=== PATIENT | male | born 1995 | race Caucasian/White ===

== ENCOUNTER 2019-12-07 11:39 | Emergency (ER) | payer MEDICAID, SELFPAY ==
--- NOTE | 2019-12-07 11:56 | ED.GENADULT ---
HPI - General Adult General Chief complaint: Skin/Abscess/Foreign Body Stated complaint: CYST Time Seen by Provider: 12/07/19 11:56 Source: patient Mode of arrival: ambulatory Limitations: no limitations History of Present Illness HPI narrative: Left thigh and right thigh bumps x several days. No fevers/chills. Onset (ago): day(s) Location: lower extremity (right and left ) Radiation: non-radiation Severity: mild Quality: burning Pain Consistency: constant Associated symptoms: denies other symptoms Related Data Previous Rx's Medication Instructions Recorded cephalexin 500 mg PO Q8H #21 cap 12/07/19 sulfamethoxazole-trimethoprim 1 tab PO BID #14 tab 12/07/19 [Bactrim DS] Allergies Allergy/AdvReac Type Severity Reaction Status Date / Time No Known Allergies Allergy Verified 12/07/19 12:07 [No Known Allergies*] Review of Systems Review of Systems: Yes all other systems are reviewed and are negative Constitutional: Constitutional: Reports no additional constitutional complaints, Denies body ache(s), Denies chills, Denies fever(s), Denies headache(s) and Denies weakness Eyes: Eyes: Reports no additional eye complaints and Denies change in vision ENT: Reports system reviewed and no additional complaints, except as documented, Denies dizziness, Denies headache(s), Denies nasal congestion, Denies nasal discharge and Denies neck pain Cardiovascular: Cardiovascular: Reports no additional cardiovascular complaints, Denies chest pain, Denies leg edema and Denies dyspnea Respiratory: Respiratory: Reports no additional respiratory complaints, Denies cough and Denies dyspnea Gastrointestinal: Gastrointestinal: Reports no additional gastrointestinal complaints, Denies abdominal pain, Denies diarrhea, Denies nausea and Denies vomiting Genitourinary: Genitourinary: Denies urinary incontinence Musculoskeletal: Musculoskeletal: Reports no additional musculoskeletal complaints, Denies back pain, Denies arthralgias, Denies joint swelling, Denies neck pain, Denies numbness and Denies tingling Integumentary/Breasts: Skin/Breast: Reports system reviewed and no additional complaints, except as docu, Reports lesions and Denies rash Neurologic: Reports system reviewed and no additional complaints, except as documented, Denies Abnormal speech present, Denies dizziness, Denies headache(s), Denies numbness, Denies tingling and Denies weakness [facility] Past Medical History Attestation statement: The following information was validated with the patient. Source: obtained from family and nursing notes reviewed Medical History (Updated 12/07/19 @ 12:14 by Ximena Arnett NP) No known health problems Social History Social History Alcohol intake: unknown Smoking Status: Unknown if ever smoked Use of substances other than those prescribed or required for medical reasons: Unknown Advance Directives: No Advance Directives Information Provided: Yes Physical Exam Vital Signs and I&O and Narrative: Vital Signs and I&O: Vital Signs Temp 97.6 F 12/07/19 12:03 Pulse 65 12/07/19 12:03 Resp 16 12/07/19 12:03 BP 120/61 12/07/19 12:03 Pulse Ox 96 12/07/19 12:03 Intake & Output 12/06/19 12/07/19 12/07/19 18:59 06:59 18:59 Weight 210 kg Body Mass Index 66.4 Const: General: cooperative, healthy appearing, comfortable and no acute distress Orientation/consciousness: patient oriented x3 Limitations: no limitations HENMT: Head: Yes normal to inspection Ears: hearing grossly normal bilaterally General nose exam: Normal external nose present Face and sinus: Yes normal facial exam Mouth: Normal oral and palatal mucosa present Throat: Yes posterior oropharynx normal Eyes: General: appearance normal, both eyes and all related structures Pupils: Equal, round and reactive pupils present Neck: Neck: Yes normal visual inspection Chest: Chest palpation & inspection: normal inspection of the chest Resp: Effort & Inspection: normal respiratory effort Auscultation: clear to auscultation bilaterally Cardio: Rate: regular rate Rhythm: regular rhythm Peripheral pulses: Peripheral pulses 2+ throughout GI: Inspection: Yes normal to inspection Palpation (GI): Soft to palpation and nontender Auscultation: normal bowel sounds Back/Spine/Pelvis: Thoracic/Lumbar Spine: thoracic and lumbar spine normal to inspection Skin: Other: Over the left lateral thigh there is a medium abscess with surrounding cellulitis. There is a central puncture wound. There is no fluctuance. There is some mild induration. Over the right lateral thigh there is a small abscess with some mild erythema and no pointing or fluctuance or induration. General skin exam: no rashes or lesions noted Neuro: General: patient oriented x3, no focal motor deficits and normal sensation to monofilament Cranial nerves: Yes Equal, round and reactive pupils present Cognition (Neuro): normal cognition Speech: No Abnormal speech present Gait exam (Neuro): Normal gait present Motor exam (neuro): 5/5 motor strength present throughout Extrem: General: Yes normal to inspection Medical Decision Making MDM Narrative Medical decision making narrative: Two abscesses noted. Unable to I and D at this time. No fevers or chills or systemic signs of infection. Will start on oral antibiotics. Reviewed worrisome signs and symptoms and when to return to the emergency department. Comfortable discharge home. Discharge Plan Discharge Clinical Impression: Cellulitis Patient Disposition: Home, Self-Care Instructions: Cellulitis (ED), Abscess (ED) Additional Instructions: heat to the area return for increasing redness, fever >100.4 Prescriptions: New cephalexin 500 mg capsule 500 mg PO Q8H Qty: 21 RF: 0 sulfamethoxazole-trimethoprim [Bactrim DS] 800-160 mg tablet 1 tab PO BID Qty: 14 RF: 0 Referrals: Physician,Unknown [Primary Care Provider] - 2 days Interventions: ED Discharge Assessment Last Done: 12/07/19 12:35 Discharge Date/Time: 12/07/19 12:37
[2019-12-07 12:03] VITALS: BP 120/61; PULSE 65; RESP 16; TEMP 36.4; O2SAT 96; BMI 66.4
== END 2019-12-07 12:37 | disposition home or self-care (01) ==
PROVIDERS: Emergency Provider Internal Medicine
DX: L03.116 Cellulitis of left lower limb (principal); L03.115 Cellulitis of right lower limb
CPT/HCPCS: 99283

== ENCOUNTER 2019-12-18 09:38 | Outpatient (REF) | payer MEDICAID, SELFPAY | END 2019-12-18 09:39 | disposition home or self-care (01) | LOC: HO.LAB 09:38 | PROVIDERS: PCP Registered Nurse; Visit Provider Internal Medicine | DX: Z20.828 Contact with and (suspected) exposure to other viral communicable diseases (principal) | CPT/HCPCS: 87635 ==

== ENCOUNTER 2020-02-07 10:09 | Outpatient (REF) | payer MEDICAID, SELFPAY | END 2020-02-07 10:10 | disposition home or self-care (01) | LOC: HO.LAB 10:09 | PROVIDERS: PCP Registered Nurse; Visit Provider Internal Medicine | DX: Z20.828 Contact with and (suspected) exposure to other viral communicable diseases (principal) | CPT/HCPCS: C9803; U0003 ==

== ENCOUNTER 2020-03-15 12:56 | Outpatient (REF) | payer MEDICAID, SELFPAY | END 2020-03-15 12:57 | disposition home or self-care (01) | LOC: HO.LAB 12:56 | PROVIDERS: Visit Provider Internal Medicine | DX: Z20.822 Contact with and (suspected) exposure to COVID-19 (principal) | CPT/HCPCS: 36415; C9803; U0003 ==

== ENCOUNTER 2020-03-22 12:28 | Outpatient (REF) | payer MEDICAID, SELFPAY | END 2020-03-22 12:29 | disposition home or self-care (01) | LOC: HO.LAB 12:28 | PROVIDERS: Visit Provider Internal Medicine | DX: Z20.822 Contact with and (suspected) exposure to COVID-19 (principal) | CPT/HCPCS: 36415; C9803; U0003 ==

== ENCOUNTER 2020-05-31 21:14 | Emergency (ER) | payer MEDICAID, SELFPAY ==
--- NOTE | ~2020-05-31 | CT_ITS ---
EXAMINATION: CT ABDOMEN AND PELVIS WITH CONTRAST CLINICAL INFORMATION: Right testicular pain. COMPARISON: 05/31/2020. TECHNIQUE: Contiguous axial thin section helical images of the abdomen and pelvis were performed following the administration of 85 mL of intravenous Omnipaque 350. The data set was reformatted in the coronal and sagittal planes and reviewed on an independent workstation. DLP: 769 mGy-cm. FINDINGS: The visualized lung bases are clear. The visualized portions of the heart are unremarkable. The liver is of normal size and attenuation without focal lesions nor intrahepatic biliary ductal dilation. A normal gallbladder is identified. There is no wall thickening or discernible pericholecystic fluid. The spleen, pancreas, adrenal glands are unremarkable. Both kidneys are of normal size and attenuation without hydronephrosis or nephrolithiasis. Following the administration of IV contrast, prompt symmetric nephrograms are displayed. There is no abdominal free fluid. There is neither mesenteric nor retroperitoneal lymphadenopathy. Normal unopacified loops of small and large bowel are identified. A normal appendix is identified. There is no pelvic free fluid. The urinary bladder is unremarkable. There is neither pelvic nor inguinal lymphadenopathy. There is no demonstrable hernia. Bone windows: Neither sclerotic nor lytic bone lesions are identified. CT/CT abdomen pelvis w con IMPRESSION: No acute abdominal or pelvic inflammatory or infectious processes. No demonstrable inguinal hernia. Automated exposure control (Care Dose) Adjustment of the mA and/or kv according to patient size (this includes techniques or standardized protocols for targeted exams where dose is matched to indication / reason for exam; i.e. extremities or head).
--- NOTE | ~2020-05-31 | US_ITS ---
EXAMINATION: US SCROTUM CLINICAL INFORMATION: Question of testicular torsion. COMPARISON: Scrotal ultrasound 10/12/2019 TECHNIQUE: A sonogram of the scrotum was performed assessing mendoza-scale appearance and color Doppler flow. Spectral Doppler analysis of the arterial and venous flow were performed in the testes bilaterally. FINDINGS: RIGHT: Right testicle measures 4.3 x 2.2 x 3.1 cm, volume 14 point mL. No worrisome focal testicular parenchymal lesions are visualized. Testicular microlithiasis is present. Spectral Doppler analysis of the arterial and venous flow is normal in the right testis. Right epididymal head is normal in size. No right hydrocele or varicocele is seen. Right epididymal Doppler flow is normal. LEFT: Left testicle measures 4.0 x 2.4 x 2.9 cm, volume 14.5 mL. No worrisome focal testicular parenchymal lesions are visualized. Testicular microlithiasis is present. Spectral Doppler analysis of the arterial and venous flow is normal in the left testis. Left epididymal head is normal in size. 2 tiny epididymal cysts are present measuring 2 to 3 mm in size. No left hydrocele or varicocele is seen. Left epididymal Doppler flow is normal. US/US scrotum doppler IMPRESSION: 1. No evidence of testicular torsion with symmetric vascularity of both testes. 2. Tiny benign cysts in the head of the left epididymis 3. Mild testicular microlithiasis is present without intratesticular mass or other worrisome findings. In the absence of any other risk factors for testicular cancer (e.g., personal history of testicular cancer, a father or brother with testicular cancer, history of cryptorchidism or maldescent, testicular atrophy, or other risk factors), no further imaging or biochemical follow-up is necessary; Appearances were identical on the 10/12/2019 study. All that is recommended is routine monthly testicular self-examination. However, if the patient has risk factors for testicular cancer, referral to a urologist for evaluation and determination of an optimal follow-up strategy is recommended.
[2020-05-31 21:16] VITALS: BP 135/67; PULSE 72; RESP 16; TEMP 36.9; O2SAT 97; BMI 30.1
--- NOTE | 2020-05-31 23:06 | PC.NURSE ---
PT US DONE AT BEDSIDE.
[2020-05-31 23:19] LABS: Glucose Urine UA NEG (NEG); Leukocyte Esterase Urine NEG (NEG); Nitrite Urine NEG (NEG); PH 7.5 (5.0-8.0); Urine Blood NEG (NEG); Urine Ketones NEG (NEG); Urine Protein NEG (NEG-TRACE)
[2020-05-31 23:22] LABS: Appearance Urine CLEAR; Color Urine YELLOW; UACC Culture Trigger NO
--- NOTE | 2020-06-01 00:01 | ED_ITS ---
HPI - General Adult General Chief complaint: General Medical Stated complaint: Groin pain Time Seen by Provider: 05/31/20 22:08 Source: patient Mode of arrival: ambulatory History of Present Illness HPI narrative: 24-year-old male with no significant past medical history presenting to the ED complaining of groin/testicular pain radiating to lower abdomen since 12 noon today while at work. 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 Denies known injury/trauma or falls. Denies nausea/vomiting, dysuria/hematuria, diarrhea/constipation. Denies being sexually active. Denies penile lesions/discharge Onset (ago): hour(s) Related Data Previous Rx's Medication Instructions Recorded cephalexin 500 mg PO Q8H #21 cap 12/07/19 sulfamethoxazole-trimethoprim 1 tab PO BID #14 tab 12/07/19 [Bactrim DS] Allergies Allergy/AdvReac Type Severity Reaction Status Date / Time No Known Allergies Allergy Verified 12/07/19 12:07 [No Known Allergies*] Review of Systems Review of Systems: Constitutional: No Fever, No Chills Cardiovascular: No Chest Pain, No SOB Respiratory: No Cough, No Dyspnea Gastrointestinal: No Nausea, No Vomiting, No Diarrhea, No Constipation, + Abdominal pain Genitourinary: No irregular bleeding, No Dysuria, No Hematuria, No Flank Pain, No Urinary Flow Changes, + testicular pain Musculoskeletal: No joint pain, No Myalgias, No Joint Swelling Skin: No Skin Lesions, No rash Yes all other systems are reviewed and are negative PMFSH Past Medical History Attestation statement: The following information was validated with the patient. Medical History (Updated 06/01/20 @ 02:06 by ELA Yen) No known health problems Social History Social History Alcohol intake: unknown Smoking Status: Unknown if ever smoked Smoked in Last 30 Days: No Use of substances other than those prescribed or required for medical reasons: No Any prior treatment program specific to substance use: No Advance Directives: No Advance Directives Information Provided: Yes Physical Exam Vital Signs: Vital Signs: Last Vital Signs Temp 98.5 F 06/01/20 00:44 Pulse 75 06/01/20 00:44 Resp 20 06/01/20 00:44 BP 138/88 06/01/20 00:44 Pulse Ox 100 06/01/20 00:44 Body Mass Index 30.1 Const: Other: in pain General: cooperative, healthy appearing, comfortable and well developed Orientation/consciousness: patient oriented x3 Limitations: no limitations HENMT: Head: Yes normal to inspection Ears: hearing grossly normal bilaterally General nose exam: Normal external nose present Face and sinus: Yes normal facial exam Eyes: General: appearance normal, both eyes and all related structures EOM: EOMs intact bilaterally Neck: Neck: Yes normal visual inspection and Yes no meningeal signs Resp: Effort & Inspection: normal respiratory effort Cardio: Rate: regular rate GI: Inspection: Yes normal to inspection Palpation (GI): Soft to palpation, nontender, no guarding and not rigid : Penis: normal penis and circumcised Scrotum: no inguinal hernias Testes: epididymal tenderness on the right, no testicular mass, no testicular swelling and testicular tenderness on the right Skin: Rashes: no rashes Wounds: no wounds Neuro: General: patient oriented x3 and no meningeal signs Gait exam (Neuro): Normal gait present Extrem: General: Yes normal to inspection Course Course Course Narrative: -UA and GC/chlamydia negative US scrotum IMPRESSION: 1. No evidence of testicular torsion with symmetric vascularity of both testes. 2. Tiny benign cysts in the head of the left epididymis 3. Mild testicular microlithiasis is present without intratesticular mass or other worrisome findings. In the absence of any other risk factors for testicular cancer (e.g., personal history of testicular cancer, a father or brother with testicular cancer, history of cryptorchidism or maldescent, testicular atrophy, or other risk factors), no further imaging or biochemical follow-up is necessary; Appearances were identical on the 10/12/2019 study. All that is recommended is routine monthly testicular self-examination. However, if the patient has risk factors for testicular cancer, referral to a urologist for evaluation and determination of an optimal follow-up strategy is recommended >> due to patient's profound tenderness will obtain labs and CT to rule out dilan ia. Patient denies risk factors for testicular cancer, discussed follow-up with Urology --0200-- ED care transferred to Dr. Hoffmann pending remaining labs and CT. Dispo per results Medical Decision Making MDM Narrative Medical decision making narrative: 24-year-old male with no significant past med ical history presenting to the ED complaining of groin/testicular pain radiating to lower abdomen since 12 noon today while at work. On exam VSS, NAD, appears in pain, abdomen soft/nontender, right testicle very tender to palpation > epididymal, no appreciable hernia, no appreciable hernia or discharge. Concern for testicular torsion/epididymitis/orchitis vs inguinal hernia vs MSK pain. Lower concern for appendicitis/diverticulitis without abdominal tenderness on exam. Unlikely renal stone/pyelo Plan: UA, STI testing, testicular ultrasound Lab Data Result diagrams: 06/01/20 00:59 06/01/20 00:59 Labs: Lab Results 05/31/20 05/31/20 06/01/20 Range/Units 23:10 23:10 00:59 WBC (4.8-10.8) X10*3/uL RBC (4.60-5.80) X10*6/uL Hgb (14.0-18.0) g/dl Hct (42-52) % MCV (80-98) fL MCH (27.0-33.0) pg MCHC (31.0-36.0) g/dl RDW (11.0-16.0) % Plt Count (160-400) X10*3/uL MPV (9.4-12.4) fL Immature Gran % (Auto) (0.0-0.4) % Neut % (Auto) (45-73) % Lymph % (Auto) (20-40) % [place] % (Auto) (2-11) % Eos % (Auto) (0-4) % Baso % (Auto) (0-2) % Lymph # (Auto) (1.2-4.9) X10*3/uL [place] # (Auto) (0.1-1.2) X10*3/uL Eos # (Auto) (0.0-0.4) X10*3/uL Baso # (Auto) (0.0-0.2) X10*3/uL Abs Immat Gran (auto) (0.00-0.03) X10*3/uL Absolute Neuts (auto) (2.0-8.3) X10*3/uL Absolute Nucleated RBC (0.0-0.012) X10*3/uL Nucleated RBC % (auto) (0.0-0.2) /100WBC Lactic Acid 0.9 (0.5-2.0) mmol/L Urine Color YELLOW Urine Appearance CLEAR Urine pH 7.5 (5.0-8.0) Ur Specific [place] 1.020 (1.005-1.025) Urine Protein NEG (NEG-TRACE) MG/DL Urine Glucose (UA) NEG (NEG) MG/DL Urine Ketones NEG (NEG) MG/DL Urine Blood NEG (NEG) Urine Nitrite NEG (NEG) Ur Leukocyte Esterase NEG (NEG) Chlam trachomat DNA PCR NOT DETECTED (Not Detect.) N.gonorrhoeae DNA (PCR) NOT DETECTED (Not Detect.) 06/01/20 Range/Units 00:59 WBC 8.1 (4.8-10.8) X10*3/uL RBC 4.48 L (4.60-5.80) X10*6/uL Hgb 14.2 (14.0-18.0) g/dl Hct 43.0 (42-52) % MCV 96.0 (80-98) fL MCH 31.7 (27.0-33.0) pg MCHC 33.0 (31.0-36.0) g/dl RDW 13.1 (11.0-16.0) % Plt Count 174 (160-400) X10*3/uL MPV 12.0 (9.4-12.4) fL Immature Gran % (Auto) 0.1 (0.0-0.4) % Neut % (Auto) 41.4 L (45-73) % Lymph % (Auto) 46.3 H (20-40) % [place] % (Auto) 7.7 (2-11) % Eos % (Auto) 3.8 (0-4) % Baso % (Auto) 0.7 (0-2) % Lymph # (Auto) 3.7 (1.2-4.9) X10*3/uL [place] # (Auto) 0.6 (0.1-1.2) X10*3/uL Eos # (Auto) 0.3 (0.0-0.4) X10*3/uL Baso # (Auto) 0.1 (0.0-0.2) X10*3/uL Abs Immat Gran (auto) 0.01 (0.00-0.03) X10*3/uL Absolute Neuts (auto) 3.3 (2.0-8.3) X10*3/uL Absolute Nucleated RBC 0.000 (0.0-0.012) X10*3/uL Nucleated RBC % (auto) 0.0 (0.0-0.2) /100WBC Lactic Acid (0.5-2.0) mmol/L Urine Color Urine Appearance Urine pH (5.0-8.0) Ur Specific [place] (1.005-1.025) Urine Protein (NEG-TRACE) MG/DL Urine Glucose (UA) (NEG) MG/DL Urine Ketones (NEG) MG/DL Urine Blood (NEG) Urine Nitrite (NEG) Ur Leukocyte Esterase (NEG) Chlam trachomat DNA PCR (Not Detect.) N.gonorrhoeae DNA (PCR) (Not Detect.) Discharge Plan Discharge Clinical Impression: Right testicular pain Instructions: Scrotal Pain (ED) Additional Instructions: Your urine, gonorrhea, and chlamydia were negative the ultrasoun did not Show anything of eminent concern however did show mild testicular microlithiasis which should be followed up outpatient with Urology If your symptoms persist or worsen, become unbearable, you developed fever or chills return to the ED follow up with your doctor Prescriptions: No Action cephalexin 500 mg capsule 500 mg PO Q8H Qty: 21 RF: 0 sulfamethoxazole-trimethoprim [Bactrim DS] 800-160 mg tablet 1 tab PO BID Qty: 14 RF: 0 Referrals: Antony Bynum MD [Physician] - 1 week Stand Alone Forms: Work/School Release
[2020-06-01 00:44] VITALS: BP 138/88; PULSE 75; RESP 20; TEMP 36.9; O2SAT 100
[2020-06-01 01:06] LABS: Hemoglobin 14.2 g/dl (14.0-18.0); Imm Gran Abs Auto 0.01 X10*3/uL (0.00-0.03); Imm Gran Pct Auto 0.1 % (0.0-0.4); PLT CLUMP 1; SCAN SMEAR FLAG 1
[2020-06-01 01:07] LABS: Basophils Absolute Auto 0.1 X10*3/uL (0.0-0.2); Basophils Percent Auto 0.7 % (0-2); Eosinophils Absolute Auto 0.3 X10*3/uL (0.0-0.4); Eosinophils Percent Auto 3.8 % (0-4); Lymphocytes Absolute Auto 3.7 X10*3/uL (1.2-4.9); Lymphocytes Percent Auto 46.3 % (20-40); Mean Corpuscular Hemoglobin 31.7 pg (27.0-33.0); Monocytes Absolute Auto 0.6 X10*3/uL (0.1-1.2); Monocytes Percent Auto 7.7 % (2-11); Neutrophils Absolute Auto 3.3 X10*3/uL (2.0-8.3); Neutrophils Percent Auto 41.4 % (45-73); Red Blood Count 4.48 X10*6/uL (4.60-5.80); Red Cell Distribution Width 13.1 % (11.0-16.0)
[2020-06-01 01:08] LABS: MANUAL DIFF FLAG NO
--- NOTE | 2020-06-01 01:11 | PC.NURSE ---
[facility] CLOSING REPORT GIVEN TO SEYMOUR MIDDLETON WHO WILL TAKE OVER PT CARE. PT AWAITING CT SCAN.
[2020-06-01 01:20] LABS: CT PCR NOT DETECTED (Not Detect.)
[2020-06-01 01:21] LABS: NG PCR NOT DETECTED (Not Detect.)
[2020-06-01 01:23] LABS: Lactic Acid 0.9 mmol/L (0.5-2.0)
[2020-06-01 01:29] LABS: Platelet Count 174 X10*3/uL (160-400); White Blood Count 8.1 X10*3/uL (4.8-10.8)
[2020-06-01 02:14] LABS: Alanine Aminotransferase 21 U/L (0-40); Albumin Level 4.4 g/dL (3.5-5.0); Alkaline Phosphatase 75 U/L (39-117); Anion Gap 11 (12-20); Aspartate Amino Transferase 22 U/L (5-37); Bilirubin Direct < 0.2 mg/dL (0.0-0.5); Bilirubin Total < 0.2 mg/dL (0.0-1.0); Blood Urea Nitrogen 19 mg/dL (9-16); Calcium 9.5 mg/dL (8.4-10.2); Carbon Dioxide 28 mmol/L (22-29); Chloride 104 mmol/L (96-108); Creatinine Clr Calc Pharmacy 123.1; Estimated Glomerular Filt Rate > 60; Glucose Random 102 mg/dL (60-115); Potassium 4.1 mmol/L (3.3-5.1); Sodium 139 mmol/L (135-145); Total Protein 7.4 g/dL (6.5-8.0)
== END 2020-06-01 04:17 | disposition home or self-care (01) ==
PROVIDERS: Physician Assistant; Emergency Provider Emergency Medicine; PCP Registered Nurse
DX: N50.811 Right testicular pain (principal)
CPT/HCPCS: 36415; 74177; 76870; 80048; 80076; 81003; 83605; 85025; 87491; 87591; 93975; 99284; Q9967

== ENCOUNTER 2020-12-13 16:25 | Outpatient (REF) | payer MEDICAID, SELFPAY ==
--- NOTE | ~2020-12-13 | XR_ITS ---
EXAMINATION: XR WRIST, RIGHT CLINICAL INFORMATION: Atraumatic right wrist pain. COMPARISON: None TECHNIQUE: PA, lateral, and oblique views of the right wrist. FINDINGS: The bones and soft tissues are normal. No fracture. Alignment is anatomic with normal joint spaces. No erosions or abnormal soft tissue calcifications. XR/XR wrist RT min 3V IMPRESSION: Unremarkable right wrist.
== END 2020-12-13 16:26 | disposition home or self-care (01) ==
LOC: HO.XRAY 16:25
PROVIDERS: Absent Provider Nurse Practitioner Family; PCP Nurse Practitioner Family; Visit Provider Emergency Medicine
DX: M25.531 Pain in right wrist (principal)
CPT/HCPCS: 73110

== ENCOUNTER 2021-02-06 08:20 | Outpatient (REF) | payer MEDICAID, SELFPAY ==
--- NOTE | 2021-02-06 08:24 | EMG_ITS ---
Right median and ulnar motor and sensory studies were performed. Right radial sensory study was performed. Right median and lateral antecubital sensory studies were performed and paraspinal muscles were tested. IMPRESSION: Unremarkable study with no evidence of any nerve entrapment. MD MARS Barker/PORTER / [id number]
== END 2021-02-06 08:21 | disposition home or self-care (01) ==
LOC: HO.NEURO 08:20
PROVIDERS: PCP Nurse Practitioner Family; Visit Provider Emergency Medicine
DX: M25.531 Pain in right wrist (principal)
CPT/HCPCS: 95886; 95910

== ENCOUNTER → 2021-03-05 13:53 | Outpatient (BNVA) | payer MEDICAID, SELFPAY | PROVIDERS: Visit Provider Orthopaedic Surgery | DX: M25.531 Pain in right wrist (principal) | CPT/HCPCS: 99202 ==

== ENCOUNTER 2021-03-17 10:52 | Outpatient (REF) | payer MEDICAID, SELFPAY ==
[2021-03-17 11:52] LABS: IDNOW Serial# 16C4AD1C
[2021-03-17 11:53] LABS: COVID-19 Test Positive (Negative)
== END 2021-03-17 10:53 | disposition home or self-care (01) ==
LOC: HO.LAB 10:52
PROVIDERS: Visit Provider Internal Medicine
DX: Z20.822 Contact with and (suspected) exposure to COVID-19 (principal)
CPT/HCPCS: 87635; C9803

== ENCOUNTER → 2021-06-18 14:57 | Outpatient (BNVA) | payer MEDICAID, SELFPAY | PROVIDERS: Visit Provider Nurse Practitioner Family | DX: R10.13 Epigastric pain (principal); K21.9 Gastro-esophageal reflux disease without esophagitis; K59.03 Drug induced constipation | CPT/HCPCS: 99202 ==

== ENCOUNTER 2021-07-29 14:51 | Outpatient (REF) | payer MEDICAID, SELFPAY ==
[2021-07-29 16:42] LABS: Alanine Aminotransferase 22 U/L (0-40); Albumin Level 4.7 g/dL (3.5-5.0); Alkaline Phosphatase 69 U/L (39-117); Anion Gap 13 (12-20); Aspartate Amino Transferase 21 U/L (5-37); Bilirubin Total 0.6 mg/dL (0.0-1.0); Blood Urea Nitrogen 17 mg/dL (9-16); Carbon Dioxide 23 mmol/L (22-29); Chloride 107 mmol/L (96-108); Estimated Glomerular Filt Rate > 60; Glucose Random 93 mg/dL (60-115); Lipase 11 U/L (8-78); Potassium 4.3 mmol/L (3.3-5.1); Sodium 139 mmol/L (135-145); Total Protein 8.2 g/dL (6.5-8.0)
[2021-07-29 17:02] LABS: TSH reflex Free T4 1.72 uIU/mL (0.32-4.0)
[2021-07-29 17:11] LABS: Folate 19.5 ng/mL (> or = 4.0); Vitamin B12 1612 pg/mL (200-900)
[2021-08-02 12:47] LABS: Vitamin D 25-OH, D2 <4 ng/mL; Vitamin D 25-OH, D3 29 ng/mL; Vitamin D 25-OH, Total 29 ng/mL (30-100)
== END 2021-07-29 14:52 | disposition home or self-care (01) ==
LOC: HO.LAB 14:51
PROVIDERS: PCP Nurse Practitioner Family; Referring Provider Nurse Practitioner Family; Visit Provider Nurse Practitioner Family
DX: R10.13 Epigastric pain (principal); K59.01 Slow transit constipation; K62.89 Other specified diseases of anus and rectum; R19.7 Diarrhea, unspecified; E55.9 Vitamin D deficiency, unspecified
CPT/HCPCS: 36415; 80053; 82306; 82607; 82746; 83690; 84443; 99212

== ENCOUNTER 2021-09-02 11:23 | Outpatient (REF) | payer MEDICAID, SELFPAY ==
[2021-09-02 12:13] LABS: COVID-19 Test Negative (Negative); IDNOW Serial# 9DB6401D
== END 2021-09-02 11:24 | disposition home or self-care (01) ==
LOC: HO.LAB 11:23
PROVIDERS: Visit Provider Internal Medicine
DX: Z20.822 Contact with and (suspected) exposure to COVID-19 (principal)
CPT/HCPCS: 87635; C9803

== ENCOUNTER 2021-10-06 09:58 | Outpatient (REF) | payer MEDICAID, SELFPAY ==
[2021-10-06 10:29] LABS: COVID-19 Test Negative (Negative); IDNOW Serial# 16C4AD1C
== END 2021-10-06 09:59 | disposition home or self-care (01) ==
LOC: HO.LAB 09:58
PROVIDERS: Visit Provider Internal Medicine
DX: Z20.822 Contact with and (suspected) exposure to COVID-19 (principal)
CPT/HCPCS: 87635; C9803

== ENCOUNTER 2021-10-10 08:16 | Day surgery (SDC) | payer MEDICAID, SELFPAY ==
--- NOTE | 2021-10-09 09:15 | HO.ANESPROP2 ---
Documented by User: Marley Penny NP 10/09/21 09:15 HPI - Anesthesia Eval Consult details Narrative: 25yo M for Upper Endoscopy PMFSH Active Problems Active Problems: All Active Problems (Updated 03/05/21 @ 14:47 by Marcia Reddy MD) Right wrist pain (Acute) Past Medical History Medical History Gastro-esophageal reflux No known health problems Family History Family History Mother Diabetes HTN (hypertension) Maternal Grandmother Diabetes HTN (hypertension) Social History Social History Alcohol intake: unknown Patient Tobacco Use Status: Never used Tobacco Use of substances other than those prescribed or required for medical reasons: No Are you DNR?: No Advance Directives: No Advance Directives Information Provided: Yes Current occupational status: employed Current occupation: rt [employer] Allergies Allergy/AdvReac Type Severity Reaction Status Date / Time dog dander Allergy Mild Unknown Verified 07/29/21 14:56 Home Medications Medication Instructions Recorded Confirmed Last Taken Type bupropion HCl 150 mg 24 hr tablet, 150 mg PO QAM 06/18/21 10/03/21 Unknown History extended release Exam Exam Date and Time: October 09, [id number] Pertinent Lab Results Pertinent Lab Results: Laboratory Tests 06/01/20 07/29/21 00:59 15:58 WBC 8.1 Hgb 14.2 Hct 43.0 Plt Count 174 Sodium 139 Potassium 4.3 Chloride 107 Carbon Dioxide 23 BUN 17 H Creatinine 1.04 Assessment and Plan Assessment Anesthesia Assessment: Chart Reviewed Documented by User: Germaine Stewart MD 10/10/21 09:16 PMFSH Active Problems Active Problems: All Active Problems (Updated 03/05/21 @ 14:47 by Marcia Reddy MD) Right wrist pain (Acute) Sarmiento Parkinson White syndrome. Has been having some chest pain ? 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 Past Medical History Medical History Gastro-esophageal reflux No known health problems Family History Family History Mother Diabetes HTN (hypertension) Maternal Grandmother Diabetes HTN (hypertension) Family history of problems with anesthesia: No Surgical History History of Problems with Anesthesia: No Social History Social History Alcohol intake: unknown Patient Tobacco Use Status: Never used Tobacco Use of substances other than those prescribed or required for medical reasons: No Are you DNR?: No Advance Directives: No Advance Directives Information Provided: Yes Current occupational status: employed Current occupation: rt [employer] Allergies Allergy/AdvReac Type Severity Reaction Status Date / Time dog dander Allergy Mild Unknown Verified 07/29/21 14:56 Home Medications Medication Instructions Recorded Confirmed Last Taken Type bupropion HCl 150 mg 24 hr tablet, 150 mg PO QAM 06/18/21 10/03/21 Unknown History extended release Exam Height,Weight and Vital Signs: Height 5 ft 11 in Weight 108.862 kg Vital Signs Temp Pulse Resp BP Pulse Ox O2 Del Method 10/10/21 08:32 98.4 F 67 16 128/65 98 Room Air Airway Mallampati Class: III TM Dist: >3cm Neck ROM: Full Loose/Missing/Broken Teeth: No (No loose or broken per patient) Heart: RRR Lungs: Diminished ? CTAB. No wheezes Assessment and Plan Assessment Anesthesia Assessment: Anesthesia Plan Discussed Final Anesthetic Review Family History of Problems with Anesthesia: No History of Problems with Anesthesia: No NPO: Yes ASA Class: II Final Preanesthetic Review: No Changes in Pt Med Stat, Meds/Allgs Chart Reviewed, Consent Obtained/Reviewed and Anes Risks/Benef Reviewed Patient Risk: Intermediate Procedure Risk: Low Assessment/Block/Sedation in SS: Assess/Block/Sedation-SS Anesthetic Plan Anesthetic Plan: MAC: Disposition: Standard PACU
[2021-10-10 08:32] VITALS: BP 128/65; PULSE 67; RESP 16; TEMP 36.9; O2SAT 98; BMI 33.5
[2021-10-10] MEDS: Lactated Ringers 1,000 ML 100 ML IVCONT (08:42)
--- NOTE | 2021-10-10 09:43 | MHC.SHP ---
Pre-Procedural Eval Section A Date of Service: 10/10/21 The patient is an INPATIENT: No The History & Physical has been completed within 30 days and I have reviewed it.: No Section B Chief Complaint: epigastric pain Details of Present Illness: GERD, epigastric pain Relevant Family History (Specify if Yes): No Relevant Social History: None Present Medications: see Short Stay Collaborative assessment Medical History: Significant History (GERD) History of Previous Operations: No relevant previous surgery Allergies: Allergies Allergy/AdvReac Type Severity Reaction Status Date / Time dog dander Allergy Mild Unknown Verified 07/29/21 14:56 Review of Systems Sugical H&P ROS: Negative: Constitution, Cardiovascular and Respiratory and Yes, Specify: Gastrointestinal (GERD, abdominal pain) Exam Surgical H&P Exam: Normal: Heart, Normal: Lungs, Normal: Extremities and Normal: Abdomen Plan Diagnosis/Plan: Unchanged I have reviewed the history and physical and performed a pertinent physical examination on my patient. No changes have occurred unless specified.
--- NOTE | 2021-10-10 09:47 | P.BOP_ITS ---
Brief Operative Note Date of Service: 10/10/21 Pre-op diagnosis: GERD, Epigastric pain Post-op diagnosis: other (GERD, gastritis) Procedure: FLEXIBLE TRANSORAL UPPER GASTROINTESTINAL ENDOSCOPY WITH BIOPSIES Consent: Indications for the procedure and potential complications of bleeding, perforation, reaction to medications and missed diagnosis were discussed with the patient and informed consent was obtained. Instrument: Olympus GIF H 190 mid size upper endoscope Monitoring: Vital signs and clinical assessment, continuous EKG monitoring, Pulse oximetry, Carbon Dioxide monitoring and blood pressure monitoring were done throughout the procedure. Procedure: The patient was placed in the left lateral decubitis position and pre-procedure medications were administered and a bite block was placed. The endoscope was inserted into the mouth and advanced under direct vision to the third part of duodenum. A careful inspection was made as the upper endoscope was withdrawn including a retroflexed examination of the proximal stomach; Findings and interventions are described below. Findings: Larynx: Normal Esophagus: GE junction at 40 cms. No esophagitis or Quiroz's. Stomach: Moderate diffuse gastric erythema with a single superficial erosion in the antrum. Biopsies were obtained from the antrum and body of the stomach. Grade 2 flap valve on retroflexed examination of the cardia. Duodenum: Normal bulb and descending duodenum. Biopsies were obtained from 3rd part of the duodenum to check for celiac sprue. Intervention: Biopsies as noted above Impression and Post Procedure Diagnosis: Endoscopy Findings: STOMACH: Moderate diffuse gastric erythema with a single superficial erosion in the antrum. Biopsies were obtained from the antrum and body of the stomach. Grade 2 flap valve on retroflexed examination of the cardia. DUODENUM: Normal bulb and descending duodenum. Biopsies were obtained from 3rd part of the duodenum to check for celiac sprue. Plan: Await pathology results Patient has an appointment on 11/04/21 in the GI Clinic with Elena Aguilar FNP- BC. Above findings were reviewed with the patient and GERD handout was given in the discharge area Surgeon: Adalberto Betts MD Anesthesia: MAC Was an Health And Safety Specialist used for this Procedure?: No Health And Safety Specialist: Wendy Sadler Estimated blood loss (mL): 0 Pathology: other ( A. small bowel bxs B. gastric antrum bxs C. gastric body bxs) Condition: stable Disposition: PACU
--- NOTE | 2021-10-10 09:48 | W.PM.OPN ---
Operative Note Operative Note Date of Service: 10/10/21 Narrative: Pre-op diagnosis: GERD, Epigastric pain Post-op diagnosis:?other (GERD, gastritis) Procedure: FLEXIBLE TRANSORAL UPPER GASTROINTESTINAL ENDOSCOPY WITH BIOPSIES Consent:?Indications for the procedure and potential complications of bleeding, perforation, reaction to medications and missed diagnosis were discussed with the patient and informed consent was obtained. Instrument:?Olympus GIF H 190 mid size upper endoscope Monitoring: Vital signs and clinical assessment, continuous EKG monitoring, Pulse oximetry, Carbon Dioxide monitoring and blood pressure monitoring were done throughout the procedure. Procedure:?The patient was placed in the left lateral decubitis position and pre-procedure medications were administered and a bite block was placed. The endoscope was inserted into the mouth and advanced under direct vision to the third part of duodenum. A careful inspection was made as the upper endoscope was withdrawn including a retroflexed examination of the proximal stomach; Findings and interventions are described below. Findings: Larynx:? Normal Esophagus: GE junction at 40 cms. No esophagitis or Quiroz's. Stomach: Moderate diffuse gastric erythema with a single superficial erosion in the antrum. Biopsies were obtained from the antrum and body of the stomach. Grade 2 flap valve on retroflexed examination of the cardia. Duodenum: Normal bulb and descending duodenum.? Biopsies were obtained from 3rd part of the duodenum to check for celiac sprue. Intervention: Biopsies as noted above Impression and Post Procedure Diagnosis: Endoscopy Findings: STOMACH: Moderate diffuse gastric erythema with a single superficial erosion in the antrum. Biopsies were obtained from the antrum and body of the stomach. Grade 2 flap valve on retroflexed examination of the cardia. DUODENUM:? Normal bulb and descending duodenum.? Biopsies were obtained from 3rd part of the duodenum to check for celiac sprue. Plan: Await pathology results Patient has an appointment on 11/04/21 in the GI Clinic with Elena Aguilar FNP-BC. Above findings were reviewed with the patient and GERD handout was given in the discharge area Surgeon: Adalberto Betts MD Anesthesia:?MAC Was an Certified Master Safecracker used for this Procedure?:?No Certified Master Safecracker:?Wendy Sadler Estimated blood loss (mL):?0 Pathology:?other ( A. small bowel bxs? B. gastric antrum bxs? C. gastric body bxs) Condition:?stable Disposition:?PACU
[2021-10-10 10:15] VITALS: BP 127/74; PULSE 81; RESP 16; TEMP 36.3; O2SAT 98
== END 2021-10-10 10:56 | disposition home or self-care (01) ==
PROVIDERS: PCP Nurse Practitioner Family; Visit Provider Internal Medicine Gastroenterology
PROC: 0DJ08ZZ Inspection of Upper Intestinal Tract, Via Natural or Artificial Opening Endoscopic (ICD-10-PCS; CPT 43235; principal; 2021-10-10 09:20)
DX: K29.50 Unspecified chronic gastritis without bleeding (principal); K21.9 Gastro-esophageal reflux disease without esophagitis; K59.01 Slow transit constipation; E55.9 Vitamin D deficiency, unspecified; Z79.899 Other long term (current) drug therapy
CPT/HCPCS: 43239; 88305; 88342; J2250; J3010

== ENCOUNTER → 2021-11-04 09:19 | Outpatient (BNVA) | payer MEDICAID, SELFPAY | PROVIDERS: PCP Nurse Practitioner Family; Visit Provider Nurse Practitioner Family | DX: R10.13 Epigastric pain (principal); R14.0 Abdominal distension (gaseous) | CPT/HCPCS: 99212 ==

== ENCOUNTER → 2022-02-03 09:00 | Outpatient (BNVA) | payer MEDICAID, SELFPAY | PROVIDERS: PCP Nurse Practitioner Family; Visit Provider Nurse Practitioner Family | DX: R10.13 Epigastric pain (principal); K21.9 Gastro-esophageal reflux disease without esophagitis; R14.0 Abdominal distension (gaseous); Z79.899 Other long term (current) drug therapy | CPT/HCPCS: 99212 ==

== ENCOUNTER → 2022-08-11 15:30 | Outpatient (BNVA) | payer MEDICAID, SELFPAY | PROVIDERS: Visit Provider Nurse Practitioner Family | DX: R10.13 Epigastric pain (principal); R14.0 Abdominal distension (gaseous); K64.9 Unspecified hemorrhoids | CPT/HCPCS: 99212 ==

== ENCOUNTER 2023-08-02 12:05 | Outpatient (REF) | payer MEDICAID, SELFPAY ==
[2023-08-02 12:31] LABS: MANUAL DIFF FLAG NO
[2023-08-02 13:07] LABS: Basophils Percent Auto 0.9 % (0-2); Eosinophils Absolute Auto 0.1 X10*3/uL (0.0-0.4); Hematocrit 42.9 % (42.0-52.0); Hemoglobin 14.5 g/dl (14.0-18.0); Imm Gran Abs Auto 0.01 X10*3/uL (0.00-0.03); Imm Gran Pct Auto 0.2 % (0.0-0.4); Lymphocytes Absolute Auto 1.9 X10*3/uL (1.2-4.9); Lymphocytes Percent Auto 45.4 % (20-40); Mean Corpuscular HGB Conc 33.8 g/dl (31.0-36.0); Mean Corpuscular Hemoglobin 31.7 pg (27.0-33.0); Mean Corpuscular Volume 93.7 fL (80.0-98.0); Mean Platelet Volume 11.4 fL (9.4-12.4); Monocytes Absolute Auto 0.4 X10*3/uL (0.1-1.2); Monocytes Percent Auto 8.9 % (2-11); Neutrophils Absolute Auto 1.8 x10*3/uL (2.0-8.3); Neutrophils Percent Auto 41.6 % (45-73); Platelet Count 162 X10*3/uL (160-400); Red Blood Count 4.58 X10*6/uL (4.60-5.80); Red Cell Distribution Width 12.1 % (11.0-16.0); White Blood Count 4.3 X10*3/uL (4.8-10.8)
[2023-08-02 13:36] LABS: Cholesterol 145 mg/dL (<200); HDL Cholesterol 32 mg/dL (>40); LDL Cholesterol Calculated 97 mg/dL (<100); Triglycerides 84 mg/dL (<150)
[2023-08-02 13:52] LABS: TSH reflex Free T4 1.64 uIU/mL (0.32-4.0)
[2023-08-02 16:09] LABS: CT PCR NOT DETECTED (Not Detect.); NG PCR NOT DETECTED (Not Detect.)
[2023-08-03 05:31] LABS: HIV AB/AG Nonreactive (Nonreactive); HIV Num 1 0.07 S/CO (0.00-0.99); ~Hepatitis C Antibody Nonreactive (Nonreactive)
[2023-08-04 11:44] LABS: RPR Rapid Plasma Reagin NON-REACTIVE (NON-REACTIVE)
[2023-08-04 20:48] LABS: Trichomonas vag. RNA Ur Male NOT DETECTED (NOT DETECTED)
[2023-08-08 15:13] LABS: Testosterone, Free 82.3 pg/mL (35.0-155.0); Testosterone, Total 445 ng/dL (250-1100)
== END 2023-08-02 12:06 | disposition home or self-care (01) ==
LOC: HO.LAB 12:05
PROVIDERS: PCP Nurse Practitioner Primary Care; Visit Provider Nurse Practitioner Primary Care
DX: Z11.3 Encounter for screening for infections with a predominantly sexual mode of transmission (principal); Z11.4 Encounter for screening for human immunodeficiency virus [HIV]; Z13.220 Encounter for screening for lipoid disorders; R53.83 Other fatigue
CPT/HCPCS: 0353U; 80061; 84402; 84403; 84443; 85025; 86592; 86803; 87389; 87661

== ENCOUNTER 2024-04-10 12:23 | Outpatient (REF) | payer MEDICAID, SELFPAY ==
--- OUTSIDE RECORDS SUMMARY | 2024-04-10 13:28 | XMS_ITS | Encounter Summary ---
Author Organization [email or web address] Address [address] [place] [address] Care Team Providers Care Ferryboat Deckhand Name Role Phone Keith Iris TOURE Primary Care Provider [phone] Encounter Details Date Type Department Care Team (Latest Contact Info) Description 04/10/2024 Travel Social History Tobacco Use Types Packs/Day Years Used Date Smoking Tobacco: Some Days Cigarettes Smokeless Tobacco: Never Alcohol Use Standard Drinks/Week Comments Never 0 (1 standard drink = 0.6 oz pur e alcohol) Depression Answer Date Recorded Patient Health Questionnaire-9 Score 3 04/10/2024 Patient Health Questionnaire-9 Score 3 04/10/2024 Last PHQ-9: Questionnaire Data Not on file 0 04/10/2024 Housing Stability Answer Date Recorded What is your housing situation today? I have amina alcaraz 01/01/[address] you li ve. Do you have problems with any of the following? None of the above 01/01/2023 Food Insecurity Answer Date Recorded Within the past 12 months, y ou worried that your food would run out before you got money to buy more: Never True 01/01/2023 Within the past 12 months,th e food you bought just didn't last and you didn't have enough money to get more: Never True 04/2022 Transportation Answer Date Recorded In the past 12 months, has l ack of transportation kept you from medical appts, meetings, work or from getting things needed for daily living? No 01/01/2023 Utilities Answer Date Recorded In the past 12 months, has t he electric, gas, oil or water company threatened to shut off services in your home? No 01/01/2023 Depression Answer Date Recorded Patient Health Questionnaire-2 Score 0 04/10/2024 Sex and Gender Information Value Date Recorded Sex Assigned at Male 12/29/2021 10:36 AM EDT Legal Sex Male 10:36 AM EDT Gender Identity Choose not to disclose 10:36 AM EDT Sexual Orientation Choose not to disclose 2021 10:36 AM EDT documented as of this encounter Plan of Treatment Not on file documented as of this encounter Visit Diagnoses Not on filedocumented in this encounter Additional Health Concerns Assessment Noted Time PHQ-9 Depression Total Score: 3 04/10/19 25 1:19 PM EST documented as of this encounter Care Teams Ferryboat Deckhand Relationship Specialty Start Date End Date Iris Parker ANP [address] [place] [phone] PCP - General Family Medicine 11/19/22 documented as of this encounter
--- OUTSIDE RECORDS SUMMARY | 2024-04-10 13:28 | XMS_ITS | Clinical Summary ---
Author Organization [employer] Address [address] [place] [address] Care Team Providers Care Ceramic Sprayer Name Role Phone Iris Parker TEJAL Primary Care Provider [phone] Allergies Active Allergy Reactions Criticality Noted Date Comments Cat Dander Runny nose 09/25/2022 Dog Epithelium Runny nose 09/25/2022 Medications sodium chloride (Mackinac) 0.65 % nasal spray Administer 2 sprays into each nostril if needed for congestion. 30 mL 1 4 Active Blood Pressure kitIndications:El evated blood pressure reading without diagnosis of hypertension 1 kit Once per day. 1 kit 4 Active fluticasone (Flonase) 50 MCG/ACT nasal spray ADMINISTER 1-2 SPRAYS INTO EACH NOSTRIL IN THE MORNING SHAKE GENTLY BEFORE FIRST USE, PRIME PUMP AFTER USE, CLEAN TIP AND REPLACE CAP 48 mL 4 Active fexofenadine (Jatin) 180 MG tablet TAKE 1 TABLET BY MOUTH EVERY DAY IF NEEDED FOR ALLERGIES 90 tablet 4 Active Active Problems Problem Noted Date Diagnosed Date Allergic rhinitis 05/25/2023 Assessment & Plan (05/25/2023 6:11 PM EDT): Symptoms of allergic rhinitis -discussed importance to avoid allergens -trial w jatin -ocean nasal spray -flonase for 3 to 4 weeks trial -will avoid for now montelukast w on and off SI -depression not controlled -f w PCP in 4 to 6 weeks -may need motion picture equipment machinist referral / oral steroids short course if not improving w current tx Routine adult health maintenance 09/25/2022 Assessment & Plan (09/25/2022 4:46 PM EDT): Patient had to leave early due to work. I was not able to complete PE. F/up in 2 months to complete PE PHQ: 0, therapist waldemar at [facility] STI: girlfriend, 7 months, monogamous, Contraception: gf on control. Substance use: Denies cigarettes. Rare etoh use. Denies drug/marijuana. Lipids: labs ordered. 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 Encounters Date Type Department Care Team Description 04/10/2024 11:15 AM EST Office Visit [facility] [address] [place] [phone] Iris Parker ANP Chronic bilateral low back pain without sciatica (Primary Dx); Routine adult health maintenance; Epigastric pain 04/10/2024 Travel 02/24/2024 11:15 AM EST Office Visit [address] [address] Iris Parker ANP Chronic bilateral low back pain without sciatica (Primary Dx); Anal or rectal pain 02/24/2024 Travel 02/11/2024 Patient Outreach [facility] [address] [place] [phone] Iris Parker ANP Pre-visit Planning (Pre-visit planning - LVM ) 01/26/2024 2:00 PM EST Office Visit [facility] [address] [place] [address] Damion Biggs MD Increased frequency of urination (Primary Dx); Blurred vision; Elevated blood pressure reading in office without diagnosis of hypertension; Increased thirst 01/26/2024 Telephone [facility] [address] [place] [address] Iris Parker ANP Nurse Triage from Last 3 Months Immunizations Name Administration Dates Next Due HPV 9-Valent 01/15/2021,07/04/2015,08/16/2014 Hep B, adult 03/17/2018 Influenza Injectable Quadriv alant Preservative Free IIV4 MDCK 03/26/2021,04/16/2016 Influenza injectable quadriv alent IIV4 with preservative 07/04/2015 Influenza injectable quadriv alent preservative free 01/12/2023,01/18/2019,03/10/2018 Tdap 01/18/2019 Family History Medical History Relation Name Comments Hypertension Brother Hypertension Mother Relation Name Status Comments Brother Mother Social History Tobacco Use Types Packs/Day Years Used Date Smoking Tobacco: Some Days Cigarettes Smokeless Tobacco: Never Tobacco Cessation:Ready to Q uit: Not Asked; Counseling Given: Not Answered Alcohol Use Standard Drinks/Week Comments Never 0 (1 standard drink = 0.6 oz pur e alcohol) Depression Answer Date Recorded Patient Health Questionnaire-9 Score 3 04/10/2024 Patient Health Questionnaire-9 Score 3 04/10/2024 Last PHQ-9: Questionnaire Data Not on file 0 04/10/2024 Housing Stability Answer Date Recorded What is your housing situation today? I have aminarobert alcaraz 01/01/[address] you [...] not to disclose 2021 10:36 AM EDT Last Filed Vital Signs Vital Sign Reading Time Taken Comments Blood Pressure 130/74 04/10/2024 11:36 AM EST Pulse 58 04/10/2024 11:36 AM EST Temperature 36.7 ??C (98.1 ??F) 04/10/2024 11:[address] Respiratory Rate 16 04/10/2024 11:36 AM EST Oxygen Saturation 98% 04/10/2024 11:36 AM EST Inhaled Oxygen Concentration - - Weight 100 kg (220 lb 12.8 oz) 04/10/2024 11:36 AM EST Height 177.8 cm (5' 10 ) 07/29/2023 10:20 AM EDT Body Mass Index 31.68 07/29/2023 10:20 AM EDT Plan of Treatment Health Maintenance Due Date Last Done Comments Family Planning (PISQ) 2012 Pneumococcal Vaccine: Pediatrics (0 to 5 Years) and At-Risk Patients (6 to 49) Years) (1 of 2 - PCV) 2016 Hepatitis B Vaccines (2 of 3 - 19+ 3-dose series) 04/14/2018 03/17/2018 SDOH Screening 09/18/2023 09/17/2022 Depression Screening 09/26/2023 09/25/2022, 09/26/19 23 Influenza Vaccine (#1) 2024 , 03/26/2021, 01/18/2019, Additional history exists Postponed from 10/31/2023 (Patient Refused) Alcohol/Substance Use Screening 02/23/2025 02/24/2024 COVID-19 Vaccine ( season) 2025 09/04/2021, 08/15/2020, 07/25/2020 Postponed from 10/31/2023 (Patient Refused) Tobacco Screening 04/10/2025 04/10/2024 Lipid Panel 08/01/2028 08/02/2023, 08/28/2019 DTaP/Tdap/Td Vaccines (2 - Td or Tdap) 01/18/2029 01/18/2019 Zoster Vaccines (1 of 2) 12/21/2047 RSV Patients and Patients Aged 60 years or older (1 - 1-dose 75+ series) 2072 HPV Vaccines Completed 01/15/2021, 06/2015, 08/16/2014 HIV Screening Completed 08/02/2023 Hepatitis C Screening Completed 08/02/2023 HIB Vaccines Aged Out No longer eligi ble based on patient's age to complete this topic Hepatitis A Vaccines Aged Out No long er eligible based on patient's age to complete this topic IPV Vaccines Aged Out No longer eligi ble based on patient's age to complete this topic Meningococcal Vaccine Aged Out No talat kiki eligible based on patient's age to complete this topic RSV under 20 months Aged Out No longe r eligible based on patient's age to complete this topic Rotavirus Vaccines Aged Out No longer eligible based on patient's age to complete this topic Procedures Procedure Name Priority Date/Time Associated Diagnosis Comments POCT URINALYSIS DIPSTICK Routine 01/26/2024 12:21 PM EST Increased thirst Increased frequency of urination Blurred vision POCT GLUCOSE Routine 01/26/2024 12:21 PM EST Increased thirst Increased frequency of urination Blurred vision POCT GLYCATED HEMOGLOBIN, TOTAL Routine 01/26/2024 12:21 PM EST Increased thirst Increased frequency of urination Blurred vision HEPATITIS C AB W/REFL TO HCV RNA, QN, PCR Routine 08/02/2023 12:29 PM EDT Routine screening for STI (sexually transmitted infection) HIV 1/2 ANTIGEN/ANTIBODY, FOURTH GENERATION W/RFL Routine 08/02/2023 12:29 PM EDT Routine screening for STI (sexually transmitted infection) LIPID PANEL, STANDARD Routine 08/02/2023 12:29 PM EDT Lipid screening from Last 3 Months or Most Recently Relevant to Health Maintenance Results * POCT HGB A1C (01/26/2024 12:21 PM EST) Hemoglobin A1C 5.4 4.0 - 6.0 % Blood 01/26/2024 12:2 1 PM EST us Damion Biggs MD POINT OF CARE TEST ENTER/EDIT OR DERABLES Final Result * POCT Glucose (01/26/2024 12:21 PM EST) Pathologist [facility] Glucose Blood, POC 92 60 - 200 mg/dL Blood Capillary blood specimen / Unknown 01/26/2024 12:21 PM EST us Damion Biggs MD POINT OF CARE TEST ENTER/EDIT OR DERABLES Final Result * POCT Urinalysis (01/26/2024 12:21 PM EST) Pathologist [facility] Color, UA Yellow Clarity, UA Clear Glucose, UA Negative Bilirubin, UA Negative Ketones, UA Negative Spec Grav, UA 1.015 Blood, UA Negative Negative, None Detected pH, UA 6.5 Protein, UA Negative Urobilinogen, UA 0.2 Leukocytes, UA Negative Negative, Rare, Trace Nitrite, UA Negative Negative, None Detected Urine 01/26/2024 12:2 1 PM EST us Damion Biggs MD POINT OF CARE TEST ENTER/EDIT OR DERABLES Final Result * Hepatitis C Antibody with Reflex to HCV, RNA, Quantitative, Real-Time PCR (08/02/2023 12:29 PM EDT) Pathologist [facility] Hepatitis C Antibody Nonreactive Nonreactive [facility] Comment:Antibodies to HCV no t detected; does not exclude early acuteHCV infection. Blood Venous blood specimen / Unknown 08/02/2023 12:29 PM EDT 08/02/2023 12:29 PM EDT Iris Parker [facility] BLOOD ORDERABLES Final Resul t Performing Organization Address [facility]/ZIP Co de Phone Number [facility] [address] [place] [address] [phone] * HIV-1/2 Antigen and Antibodies, Fourth Generation, with Reflexes (08/02/2023 12:29 PM EDT) HIV AB/AG Nonreactive Nonreactive [facility] Comment:HIV-1 p24 Ag and/or HIV-1/HIV-2 Ab not detected.A test result that is nonreactive does not exclude thepossibility of exposure to or infection with HIV-1 and/orHIV-2. Nonreactive results in this assay for individualswith prior exposure to HIV-1 and/or HIV-2 may be due toantigen and antibody levels that are below the limit ofdetection of this assay.The [employer] HIV Ag/Ab Combo assay result andsupplemental assay results should be interpreted inconjunction with the patient's clinical presentation,history and other laboratory results. If the results areinconsistent with clinical evidence, additional testing issuggested to confirm the result. Blood Venous blood specimen / Unknown 08/02/2023 12:29 PM EDT 08/02/2023 12:29 PM EDT Iris Parker [facility] BLOOD ORDERABLES Final Resul t Performing Organization Address City/[facility]/ZIP Co de Phone Number [facility] [address] [place] [address] [phone] * (ABNORMAL) Lipid Panel, Standard (08/02/2023 12:29 PM EDT) Triglycerides 84 <150 mg/dL [facility] Comment:Desirable Triglyceri de: less than 150 mg/dLBorderline High Triglyceride 150-199 mg/dLHigh Triglyceride: 200-499 mg/dLVery High Triglyceride: greater than or equal to 5OO mg/dL Cholesterol 145 <200 mg/dL [facility] Comment:Desirable Cholestero l: less than 200 mg/dLBorderline High Cholesterol: 200-239 mg/dLHigh Cholesterol: greater than 239 mg/dL LDL Cholesterol Calculated 97 <100 mg/dL [facility] Comment:Desirable LDL: less than 100 mg/dLNear Optimal/Above Optimal LDL: 110- 129 mg/dLBorderline High LDL: 130-159 mg/dLHigh LDL: 160-189 mg/dLVery High LDL: greater than or equal to 190 mg/dL HDL Cholesterol 32(L) >40 mg/dL [facility] Comment:Desirable HDL: great er than 40 mg/dL Note: This HDL assay may give artificially low results in patients with liver disease. Blood Venous blood specimen / Unknown 08/02/2023 12:29 PM EDT 08/02/2023 12:29 PM EDT [facility] BLOOD ORDERABLES Final Resul t [facility] [address] [place] [address] [phone] from Last 3 Months or Most Recently Relevant to Health Maintenance Insurance [facility] C3 Care Teams Ceramic Sprayer Relationship Specialty Start Date End Date Iris Parker ANP [address] [place] [phone] PCP - General Family Medicine 11/19/22
--- OUTSIDE RECORDS SUMMARY | 2024-04-10 13:28 | XMS_ITS | Encounter Summary ---
Author Organization [employer] Address [address] [place] [address] Care Team Providers Care President Finance Company Name Role Phone Iris Parker Primary Care Provider [phone] Reason for Visit * Reason Onset Date Comments Nurse Triage 05/19/2023 Encounter Details Date Type Department Care Team ([facility] st Contact Info) Description 05/19/2023 Telephone [facility] [address] [place], [place] [phone] Iris Parker ANP [address] [place] [address] Nurse Triage Social History Tobacco Use Types Packs/Day Years Used Date Smoking Tobacco: Never Smokeless Tobacco: Never Alcohol Use Standard Drinks/Week Comments Never 0 (1 standard drink = 0.6 oz pur e alcohol) Depression Answer Date Recorded Patient Health Questionnaire-9 Score 0 09/25/2022 Housing Stability Answer Date Recorded What is [...] the past 12 months, has t he [employer], gas, oil or water [email or web address] threatened to shut off services in your home? No 01/01/2023 Depression Answer Date Recorded Patient Health Questionnaire-2 Score 0 09/25/2022 Sex and Gender Information Value Date Recorded Sex Assigned at Male 12/29/2021 10:36 AM EDT Legal Sex Male 10:36 AM EDT Gender Identity Choose not to disclose 10:36 AM EDT Sexual Orientation Choose not to disclose 2021 10:36 AM EDT documented as of this encounter Miscellaneous Notes * Telephone Encounter - Glendy Robertson RN - 05/19/2023 12:43 PM EDT Triage call Pt reports allergies Pt is taking benadryl on a daily basis without relief. Pt reports nasal congestion, eyes tearing and reddened at times. Difficulty breathing because of nasal congestion. Neg for fever or JEANNE sx. Pt has had flonase and claritin prescribed in the past but, no recentprescriptions available. Pt is given apt with provider Dr. Horner 05/24/23 @ 330pm. Insurance is verified as active prior to booking . Pt agrees with disposition and home care advised. Protocol Used: Nasal Allergies (Hay Fever) (Adult) Protocol-Based Disposition: See in Office or Video Visit within 2 Weeks Video visit not offered Positive Triage Question: * Nasal allergies occur year-round * All higher-acuity triage questions were negative Care Advice Discussed: * Reassurance and Education - Hay Fever * Wash Pollen off Body Daily * Antihistamine Medicines for Hay Fever * Nasal Decongestants for a Very Stuffy Nose * Reasons To Call Back - Symptoms are not controlled in 2 days with continuous antihistamines - You become worse * Telephone Encounter - Joaquín Andujar - 05/19/2023 11:39 AM EDT Symptoms: Eye Redness Without Pus or Discharge, Sinus Symptoms Outcome: Transfer to a nurse or provider NOW! Reason: Struggling for each breath (severe trouble breathing) documented in this encounter Plan of Treatment Not on file documented as of this encounter Visit Diagnoses Not on filedocumented in this encounter Additional Health Concerns Assessment Noted Time PHQ-9 Depression Total Score: 0 09/26/19 3:43 PM EDT documented as of this encounter Care Teams President Finance Company Relationship Specialty Start Date End Date Iris Parker ANP [address] [place] [address] PCP - General Family Medicine 11/19/22 documented as of this encounter
--- OUTSIDE RECORDS SUMMARY | 2024-04-10 13:29 | XMS_ITS | Encounter Summary ---
Author Organization [employer] Address [address] [place] [address] Care Team Providers Care Solar Installation Foreman Name Role Phone Iris Parker Primary Care Provider [phone] Reason for Visit * Reason Comments Follow-up Encounter Details Date Type Department Care Team ([facility] Contact Info) Description 04/10/2024 11:15 AM EST Office Visit [facility] [address] [place], [place] [phone] Iris Parker ANP [address] [place] [address] Chronic bilateral low back pain without sciatica (Primary Dx); Routine adult health maintenance; Epigastric pain Social History Tobacco Use Types Packs/Day Years [...] AM EDT documented as of this encounter Last Filed Vital Signs Vital Sign Reading [...] 12.8 oz) 04/10/2024 11:36 AM EST Height - - Body Mass Index 31.68 07/29/2023 10:20 AM EDT documented in this encounter Progress Notes * TEJAL Solorio - 04/10/2024 11:15 AM EST Subjective Patient ID: Hong Martínez is a 28 y.o. adult who presents for Follow-up. HPI Here today for follow-up. Doing well, exercising regularly, eating very cleanly. Back pain has resolved w/ core exercises and stretching. Did have a few weeks of epigastric pain that was worse when walking around. Quality was stabbing. He thinks that he had an ulcer after looking up symptoms online. He took omeprazole for 2 weeks once daily and symptoms improved. He also increased yogurt and fiber intake and continued good hydration. Smokes 1 cigarette every month or so. No substance use. Review of Systems Constitutional: Negative for chills and fever. HENT: Negative for sore throat. Respiratory: Negative for cough and shortness of breath. Cardiovascular: Negative for chest pain. Gastrointestinal: Negative for constipation and diarrhea. Endocrine: Negative for polydipsia, polyphagia and polyuria. Genitourinary: Negative for dysuria. Objective BP 130/74 (BP Location: Right arm, Patient Position: Sitting, BP Cuff Size: Adult long) Pulse 58 Temp 98.1 ??F (36.7 ??C) (Temporal) Resp 16 Wt 220 lb 12.8 oz (100 kg) SpO2 98% BMI 31.68 kg/m?? Physical Exam Vitals reviewed. Constitutional: General: Hong is not in acute distress. Appearance: Normal appearance. Hong is not ill-appearing. HENT: Head: Normocephalic and atraumatic. Eyes: General: No scleral icterus. Extraocular Movements: Extraocular movements intact. Pupils: Pupils are equal, round, and reactive to light. Cardiovascular: Rate and Rhythm: Normal rate. Pulmonary: Effort: Pulmonary effort is normal. No accessory muscle usage or respiratory distress. Neurological: Mental Status: Hong is alert and oriented to person, place, and time. Gait: Gait normal. Psychiatric: Mood and Affect: Mood normal. Behavior: Behavior normal. Assessment/Plan Diagnoses and all orders for this visit: Chronic bilateral low back pain without sciatica Comments: Resolved at present. Routine adult health maintenance Comments: update CMP. Discussed w/ pt no particular need for dietary supplements - cont to exercise, optimizesleep, and eat variety of fruits and veg. Orders: - Comprehensive Metabolic Panel; Future Epigastric pain Comments: Let us know if recurs. Consider h. pylori testing if recurs, advised will needs 2 weeks w/o omeprazole for accurate result. documented in this encounter Plan of Treatment Scheduled Orders Name Type Priority Associated Diagnoses Orde r Schedule Comprehensive Metabolic Panel Lab Routine Routine adult health maintenance Expected: 04/10/2024 (Approximate), Expires: 04/10/2025 documented as of this encounter Visit Diagnoses Diagnosis Chronic bilateral low back pain without sciatica- Primary Routine adult health maintenance Epigastric pain Abdominal pain, epigastric documented in this encounter Additional Health Concerns Assessment Noted Time PHQ-9 Depression Total Score: 3 04/10/19 25 1:19 PM EST documented as of this encounter Care Teams Solar Installation Foreman Relationship Specialty Start Date End Date Iris Parker ANP [address] [place] [address] PCP - General Family Medicine 11/19/22 documented as of this encounter
[2024-04-10 13:46] LABS: Alanine Aminotransferase 23 U/L (0-40); Albumin Level 4.5 g/dL (3.5-5.0); Alkaline Phosphatase 56 U/L (39-117); Anion Gap 10 (12-20); Aspartate Amino Transferase 23 U/L (5-37); Bilirubin Total 0.6 mg/dL (0.0-1.0); Blood Urea Nitrogen 22 mg/dL (9-16); Calcium 9.6 mg/dL (8.4-10.2); Carbon Dioxide 29 mmol/L (22-29); Chloride 106 mmol/L (96-108); Estimated Glomerular Filt Rate > 60; Glucose Random 71 mg/dL (60-115); Potassium 4.2 mmol/L (3.3-5.1); Sodium 141 mmol/L (135-145); Total Protein 8.1 g/dL (6.5-8.0)
== END 2024-04-10 12:24 | disposition home or self-care (01) ==
LOC: HO.HHCL 12:23
PROVIDERS: Visit Provider Nurse Practitioner Primary Care
DX: Z00.00 Encounter for general adult medical examination without abnormal findings (principal)
CPT/HCPCS: 36415; 80053

== ENCOUNTER 2024-11-09 14:04 | Outpatient (REF) | payer BC, SELFPAY ==
--- OUTSIDE RECORDS SUMMARY | 2024-11-09 13:00 | XMS_ITS | Encounter Summary ---
Author Organization [employer] Address [address] [place] [address] 7[address] [place] [address] Care Team Providers Care Supervisor Files Name Role Phone Iris Parker Primary Care Provider [phone] Reason for Referral * Cardiology (Routine) - Authorized Specialty Diagnoses / Procedures Referred By Contac t Referred To Contact Cardiology Diagnoses Bradycardia Procedures Holter monitor - 48 hour Iris Parker ANP [address] [place] [address] Phone: tel: fax: [address] Phone: tel: fax: Referral ID Status Reason Start Date Expiration Date V isits Requested Visits Authorized [id number] Authorized 11/09/2024 11/09/2025 1 1 Reason for Visit * Reason Comments Follow-up Insomnia, requesting to be evaluated for CPAP Encounter Details Date Type Department Care Team (Late st Contact Info) Description 11/09/2024 1:00 PM EDT Office Visit [facility] [address] [place] [address] Iris Parker ANP [address] [place], [place] [phone] Bradycardia (Primary Dx); Primary insomnia; Anxiety Social History Tobacco Use Types Packs/Day Years Used Date Smoking Tobacco: Some Days Cigarettes Passive Smoke Exposure: Current Smokeless Tobacco: Never Tobacco Cessation:Ready to Q uit: Not Asked; Counseling Given: Not Answered Alcohol Use Standard Drinks/Week Comments Never 0 (1 standard drink = 0.6 oz pur e alcohol) Depression Answer Date Recorded Patient Health Questionnaire-9 Score 24 10/31/2024 Patient Health Questionnaire-9 Score 24 10/31/2024 Last PHQ-9: Questionnaire Data Not on file 0 10/31/2024 Housing Stability Answer Date Recorded What is your housing situation today? I have housing today, but I am worried about losing housing in the future 04/10/[address] you li ve. Do you have problems with any of the following? I am not sure 04/10/2024 Food Insecurity Answer Date Recorded Within the past 12 months, y ou worried that your food would run out before you got money to buy more: Often true 04/10/2024 Within the past 12 months,th e food you bought just didn't last and you didn't have enough money to get more: Often true 11/2024 Transportation Answer Date Recorded In the past 12 months, has l ack of transportation kept you from medical appts, meetings, work or from getting things needed for daily living? No 04/10/2024 Utilities Answer Date Recorded In the past 12 months, has t he electric, gas, oil or water company threatened to shut off services in your home? Yes 04/10/2024 Depression Answer Date Recorded Patient Health Questionnaire-2 Score 6 10/31/2024 Internet Access Answer Date Recorded Internet Access Q1 Yes 04/10/2024 Internet Access Q2 Not on file 04/10/2024 Sex and Gender Information Value Date Recorded Sex Assigned at Male 12/29/2021 10:36 AM EDT Legal Sex Male 10:36 AM EDT Gender Identity Choose not to disclose 10:36 AM EDT Sexual Orientation Choose not to disclose 2021 10:36 AM EDT documented as of this encounter Last Filed Vital Signs Vital Sign Reading Time Taken Comments Blood Pressure 128/78 11/09/2024 1:08 PM EDT Pulse 68 11/09/2024 1:08 PM EDT Temperature 36.5 C (97.7 F) 11/09/2024 1:08 PM EDT Respiratory Rate 20 11/09/2024 1:08 PM EDT Oxygen Saturation - - Inhaled Oxygen Concentration - - Weight 99.8 kg (220 lb) 11/09/2024 1:08 PM EDT Height 177.8 cm (5' 10 ) 11/09/2024 1:08 PM EDT Body Mass Index 31.57 11/09/2024 1:08 PM EDT documented in this encounter Patient Instructions * Patient Instructions* TEJAL Solorio - 11/09/2024 1:00 PM EDT Stop mirtazapine - put med aside. START Fluoxetine (prozac) 10mg once daily in AM, may increase to 2 capsules (20mg) once daily after1 week START hydroxyzine as needed at bedtime 1-2 capsules for help sleeping and anxiety stop med if you have worsening of depression or anxiety and call clinic Someone from the hospital should call you to set up holter monitor. documented in this encounter Progress Notes * TEJAL Solorio - 11/09/2024 1:00 PM EDT Subjective Patient ID: Hong Martínez is a 28 y.o. adult who presents for Follow-up (Insomnia, requesting to be evaluated for CPAP). HPI From recent [place] visit for same 10/31/24 worsening insomnia since 05/2024. No difficulty falling asleep, but unable to sustain for more [id number] minutes. Denies alcohol or caffeine consumption. Lives with mother, but sleeps alone. Denies any issues with loud snoring or sleep apnea. Admits to underlying depression and anxiety. Previously tried Melatonin 3mg and Trazodone 100mg without improvement. 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 Also with patsy relationship with his mother. Currently followed by a [facility] therapist. Previously tried CBT. Also journaling. Admits to ruminating about his health. Denies SI. Denies robi. Previously took Wellbutrin and Sertraline in 2019. Has to wake up at 4am/4:30 for work, has to be there at 6. Having to go to bed 7:30/8pm. He has tried: trazodone, nyquil, melatonin Has pain in knees, back, sometimes chest muscles Takes edible THC 1x/wk ESS score 7 - no apneic events, no snoring, no waking up gastping. Do not suspect YOUSIF. PSG deferredfor now. Smokes 1-3 cigs a week Review of Systems Constitutional: Negative for fatigue and fever. HENT: Negative for sore throat. Respiratory: Negative for cough. Cardiovascular: Negative for leg swelling. Musculoskeletal: Positive for arthralgias and back pain. Negative for joint swelling and myalgias. Skin: Negative for color change. Neurological: Negative for weakness and numbness. Psychiatric/Behavioral: Positive for sleep disturbance. The patient is nervous/anxious and is hyperactive. Objective BP 128/78 (BP Location: Left arm, Patient Position: Sitting, BP Cuff Size: Adult) Pulse68 Temp 97.7 ??F (36.5 ??C) (Oral) Resp 20 Ht 5' 10 (1.778 m) Wt 220 lb (99.8 kg) BMI 31.57 kg/m?? Physical Exam Constitutional: General: Hong is not in acute distress. Appearance: Normal appearance. Hong is not ill-appearing. HENT: Head: Normocephalic and atraumatic. Nose: Congestion present. Eyes: General: No scleral icterus. Extraocular Movements: Extraocular movements intact. Pupils: Pupils are equal, round, and reactive to light. Pulmonary: Effort: Pulmonary effort is normal. No accessory muscle usage or respiratory distress. Neurological: Mental Status: Hong is alert and oriented to person, place, and time. Cranial Nerves: No cranial nerve deficit. Psychiatric: Mood and Affect: Mood normal. Behavior: Behavior normal. Assessment/Plan Diagnoses and all orders for this visit: Stop mirtazapine - put med aside. Wants to prioritize ant anxiety med. START Fluoxetine (prozac) 10mg once daily in AM, may increase to 2 capsules (20mg) once daily after1 week START hydroxyzine as needed at bedtime 1-2 capsules for help sleeping and anxiety stop med if you have worsening of depression or anxiety and call clinic Someone from the hospital should call you to set up holter monitor. Bradycardia - Holter monitor - 48 hour; Future Primary insomnia - hydrOXYzine pamoate (Vistaril) 25 MG capsule; Take 1-2 capsules at bedtime as needed for difficulty sleeping Anxiety - FLUoxetine (PROzac) 10 MG capsule; Take 1 capsule (10 mg) by mouth Once per day. May increase to 2 capsules daily after 1 week. documented in this encounter Plan of Treatment Upcoming Encounters Date Type Department Care Team (Late st Contact Info) Description 12/06/2024 4:00 PM EDT Telemedicine [facility] [address] [place] [address] Iris Parker ANP [address] [place] [address] Scheduled Orders Name Type Priority Associated Diagnoses Orde r Schedule Holter monitor - 48 hour Cardiac Services Routine Bradycardia Expected: 11/09/2024 (Approximate), Expires: 11/09/2026 documented as of this encounter Visit Diagnoses Diagnosis Bradycardia- Primary Other specified cardiac dysrhythmias Primary insomnia Persistent disorder of initiating or maintaining sleep Anxiety Anxiety state, unspecified documented in this encounter Additional Health Concerns Assessment Noted Time PHQ-9 Depression Total Score: 24 025 5:29 PM EDT documented as of this encounter Care Teams Supervisor Files Relationship Specialty Start Date End Date Iris Parker ANP [address] [place] [address] PCP - General Family Medicine 11/19/22 documented as of this encounter
[2024-11-09 16:10] LABS: MANUAL DIFF FLAG NO
[2024-11-09 16:34] LABS: Hematocrit 43.3 % (42.0-52.0); Hemoglobin 14.6 g/dl (14.0-18.0); Imm Gran Abs Auto 0.01 X10*3/uL (0.00-0.03); Imm Gran Pct Auto 0.2 % (0.0-0.4); Lymphocytes Absolute Auto 1.8 X10*3/uL (1.2-4.9); Mean Corpuscular HGB Conc 33.7 g/dl (31.0-36.0); Mean Corpuscular Hemoglobin 31.9 pg (27.0-33.0); Mean Corpuscular Volume 94.5 fL (80.0-98.0); NRBC Abs Auto 0.000 X10*3/uL (0.0-0.012); NRBC Pct Auto 0.0 /100WBC (0.0-0.2); Platelet Count 172 X10*3/uL (160-400); Red Blood Count 4.58 X10*6/uL (4.60-5.80); White Blood Count 6.2 X10*3/uL (4.8-10.8)
--- OUTSIDE RECORDS SUMMARY | 2024-11-09 17:53 | XMS_ITS | Encounter Summary ---
Author Organization [employer] Address [address] [place] [address] Care Team Providers Care Dependency Case Manager Name Role Phone ParkerIris Primary Care Provider [phone] Encounter Details Date Type Department Care Team (Latest Contact Info) Description 11/09/2024 Travel Social History Tobacco Use Types Packs/Day Years Used Date Smoking Tobacco: Some Days Cigarettes Passive Smoke Exposure: Current Smokeless Tobacco: Never Alcohol Use Standard Drinks/Week [...] as of this encounter Plan of Treatment Upcoming Encounters Date Type Department Care Team (Late st Contact Info) Description 12/06/2024 4:00 PM EDT Telemedicine [facility] [address] [place] [phone] Iris Parker ANP [address] [place] [address] documented as of this encounter Visit Diagnoses Not on filedocumented in this encounter Additional Health Concerns Assessment Noted Time PHQ-9 Depression Total Score: 24 025 5:29 PM EDT documented as of this encounter Care Teams Dependency Case Manager Relationship Specialty Start Date End Date Iris Parker ANP [address] [place] [phone] PCP - General Family Medicine 11/19/22 documented as of this encounter
--- OUTSIDE RECORDS SUMMARY | 2024-11-09 17:53 | XMS_ITS | Encounter Summary ---
Author Organization [employer] Address [address] [facility] 7t [place] [address] Care Team Providers Care Culinary Artist Name Role Phone Iris Parker Primary Care Provider [phone] Reason for Visit * Reason Onset Date Comments chart prep 11/08/2024 Encounter Details Date Type Department Care Team ([facility] st Contact Info) Description 11/08/2024 Telephone [facility] [address] [place] [address] Iris Parker ANP [address] [place] [address] chart prep Social History Tobacco Use Types Packs/Day Years [...] encounter Miscellaneous Notes * Telephone Encounter - Jose Cruz Parker MA - 11/08/2024 10:43 AM EDT Chart Prep Labs: not done Images: not applicable Referrals: appointment pending Vaccines due: Flu, PCV20, and Hep B Screenings: not applicable Overdue care gaps: Not applicable documented in this encounter Plan of Treatment Upcoming Encounters Date Type Department Care Team (Late st Contact Info) Description 12/06/2024 4:00 PM EDT Telemedicine [facility]INE [address] [place] [address] Iris Parker ANP [address] [place] [address] documented as of this encounter Visit Diagnoses Not on filedocumented in this encounter Additional Health Concerns Assessment Noted Time PHQ-9 Depression Total Score: 24 025 5:29 PM EDT documented as of this encounter Care Teams Culinary Artist Relationship Specialty Start Date End Date Iris Parker ANP [address] [place] [phone] PCP - General Family Medicine 11/19/22 documented as of this encounter
--- OUTSIDE RECORDS SUMMARY | 2024-11-09 17:53 | XMS_ITS | Encounter Summary ---
Author Organization [employer] Address [address] [facility] [place] [address] Care Team Providers Care Tailor Men'S Ready To Wear Name Role Phone Iris Parker Primary Care Provider [phone] Encounter Details Date Type Department Care Team ([facility] st Contact Info) Description 11/09/2024 Telephone [facility] [address] [place] [address] Iris Parker ANP [address] [place] [address] Social History Tobacco Use Types Packs/Day Years [...] Info) Description 12/06/2024 4:00 PM EDT Telemedicine [facility] [address] [place] [address] Iris Parker ANP [address] [place] [address] documented as of this encounter Visit Diagnoses Not on filedocumented in this encounter Additional Health Concerns Assessment Noted Time PHQ-9 Depression Total Score: 24 025 5:29 PM EDT documented as of this encounter Care Teams Tailor Men'S Ready To Wear Relationship Specialty Start Date End Date Iris Parker ANP [address] [place] [phone] PCP - General Family Medicine 11/19/22 documented as of this encounter
--- OUTSIDE RECORDS SUMMARY | 2024-11-09 17:53 | XMS_ITS | Encounter Summary ---
Author Organization [employer] Address [address] [facility] [address]t [place] [address] Care Team Providers Care Organ Assembler Name Role Phone Iris Parker Primary Care Provider [phone] Reason for Visit * Reason Onset Date Comments Nurse Triage 05/19/2023 Encounter Details Date Type Department Care Team ([facility] st Contact Info) Description 05/19/2023 Telephone [facility] [address] [place], [place] [phone] Iris Parker ANP [address] [place] [address] Nurse Triage Social History Tobacco Use Types [...] Info) Description 12/06/2024 4:00 PM EDT Telemedicine [facility] [address] [place] [address] Iris Parker ANP [address] [place] [address] documented as of this encounter Visit Diagnoses Not on filedocumented in this encounter Additional Health Concerns Assessment Noted Time PHQ-9 Depression Total Score: 0 09/26/19 3:43 PM EDT documented as of this encounter Care Teams Organ Assembler Relationship Specialty Start Date End Date Iris Parker ANP [address] [place] [phone] PCP - General Family Medicine 11/19/22 documented as of this encounter
--- OUTSIDE RECORDS SUMMARY | 2024-11-09 17:54 | XMS_ITS | Encounter Summary ---
Author Organization [employer] Address [address] [facility] [address] [place] [address] Care Team Providers Care Cushion Sewer Name Role Phone ParkerIris Primary Care Provider [phone] Encounter Details Date Type Department Care Team (Latest Contact Info) Description 11/08/2024 Travel Social History Tobacco Use Types Packs/Day [...] Info) Description 12/06/2024 4:00 PM EDT Telemedicine [facility] [address] [place] [address] Iris Parker ANP [address] [place] [address] documented as of this encounter Visit Diagnoses Not on filedocumented in this encounter Additional Health Concerns Assessment Noted Time PHQ-9 Depression Total Score: 24 025 5:29 PM EDT documented as of this encounter Care Teams Cushion Sewer Relationship Specialty Start Date End Date Iris Parker ANP [address] [place] [address] PCP - General Family Medicine 11/19/22 documented as of this encounter
--- OUTSIDE RECORDS SUMMARY | 2024-11-09 17:54 | XMS_ITS | Clinical Summary ---
Author Organization [employer] Address [address] [place] [address] Care Team Providers Care Demand Inspector Name Role Phone Iris Parker TEJAL Primary Care Provider [phone] Allergies Active Allergy Reactions Criticality Noted Date Comments Cat Dander Runny nose 09/25/2022 Dog Epithelium Runny nose 09/25/2022 Medications * This document contains information received from the source organization and may not represent a complete record from that organization. Blood Pressure kitIndications: Elevated blood pressure reading without diagnosis of hypertension 1 kit Once per day. 1 kit 07/29/19 24 Active sodium chloride ([place]) 0.65 % nasal spray Administer 2 sprays into each nostril if needed for congestion. 30 mL 2 08/16/19 25 Active Melatonin 3 MG capsule Take 3 mg by mouth at bedtime. 30 capsule 2 08/16/19 25 Active fluticasone (Flonase) 50 MCG/ACT nasal spray ADMINISTER 1-2 SPRAYS INTO EACH NOSTRIL IN THE MORNING. SHAKE GENTLY BEFORE FIRST USE, PRIME PUMP AFTER USE, CLEAN TIP AND REPLACE CAP 48 mL 11/02/19 25 Active mirtazapine (Remeron) 15 MG tabletIndicatio ns:Insomnia, unspecified type Take 1 tablet (15 mg) by mouth at bedtime. Please discontinue Trazodone. 30 tablet 2 11/01/19 25 025 Active fexofenadine (Jatin) 180 MG tablet TAKE 1 TABLET BY MOUTH EVERY DAY IF NEEDED FOR ALLERGIES 90 tablet 11/07/19 25 Active hydrOXYzine pamoate (Vistaril) 25 MG capsuleIndicati ons:Primary insomnia Take 1-2 capsules at bedtime as needed for difficulty sleeping 90 capsule 11/10/19 25 Active FLUoxetine (PROzac) 10 MG capsuleIndicati ons:Anxiety Take 1 capsule (10 mg) by mouth Once per day. May increase to 2 capsules daily after 1 week. 30 capsule 1 11/10/19 25 026 Active fluticasone (Flonase) 50 MCG/ACT nasal spray ADMINISTER 1-2 SPRAYS INTO EACH NOSTRIL IN THE MORNING. SHAKE GENTLY BEFORE FIRST USE, PRIME PUMP AFTER USE, CLEAN TIP AND REPLACE CAP 48 mL 08/02/19 25 025 Discontinued fexofenadine (Jatin) 180 MG tablet TAKE 1 TABLET BY MOUTH EVERY DAY IF NEEDED FOR ALLERGIES 90 tablet 08/16/19 25 025 Discontinued traZODone (Desyrel) 100 MG tablet Take 1 tablet (100 mg) by mouth at bedtime. 90 tablet 08/16/19 25 025 Discontinued Active Problems Problem Noted Date Diagnosed Date Insomnia 08/15/2024 Allergic rhinitis 05/25/2023 Assessment & Plan (05/25/2023 6:11 PM EDT): Symptoms of allergic rhinitis -discussed importance to avoid allergens -trial w jatin -ocean nasal spray -flonase for 3 to 4 weeks trial -will avoid for now montelukast w on and off SI -depression not controlled -f w PCP in 4 to 6 weeks -may need vault person referral / oral steroids short course if not improving w current tx Routine adult health maintenance 09/25/2022 Assessment & Plan (09/25/2022 4:46 PM EDT): Patient had to leave early due to work. I was not able to complete PE. F/up in 2 months to complete PE PHQ: 0, therapist waldemar at [facility] STI: girlfriend, 7 months, monogamous, Contraception: gf on control. Substance use: Denies cigarettes. Rare etoh use. Denies drug/marijuana. Lipids: labs ordered. Vacc.: Eye exam: Dental home: Class 1 obesity due to exces s calories without serious comorbidity with body mass index (BMI) of 33.0 to 33.9 in adult 09/25/2022 Severe recurrent major depre ssion without psychotic features 08/26/2022 Assessment & Plan (08/28/2024 9:14 AM EDT): During [facility] Consult Hong presenting with depressed mood, Tearful, hopelessness, irritable mood, loss of interests/pleasure , sense of isolation/loneliness , isolating, change in appetite or weight reduce appetite, changes in sleep difficulty falling asleep and difficulty staying asleep , psychomotor retardation, fatigue/loss of energy, worthlessness, inappropriate/excessive guilt , difficulty concentrating, indecisiveness; for a period of 0-6 mo, for most or all symptoms in the context of employment concern. Pt reported baseline depression and stated he was able to manage in the past using his own coping skills. However, over the last months his depression has been increasing. Hong associated his new job as main trigger for increase of sxs. Currently receiving services for OP therapy with [facility] at [facility]. Not interested in starting medication at this time. Assessment & Plan (08/15/2024 8:54 PM EDT): PHQ9 18 ANGELO 14 ,recalls panic attacks described as choking sensation and palpitations No SI No robi, reports sometimes seems dark objets in corner of eye ,thinks since having insomnia w difficulty falling sleep and staying sleep,denies energetic drinks , coffee nor drugs ,sleeps 8 pm until 12 am ,sleeping 4 hours ,goes to sleep early because has to be awake 4 am to be ready to work Denies to be told of persist loud snoring nor apnea Reports father and maternal GM w Bipolar Dx and brother w Schizophrenia Used to take Wellbutrin and Sertraline in 2018 until 2022 ,pt decided to stop to try to avoid pills. 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 Tried melatonin 1 mg just started last week and trazodone 50 mg for 2 mo ( got from a friend ), thinks trazodone helps somewhat -sleep hygiene advised in length -has a therapist weekly at [facility] w no plan w psychiatrist yet -offer mirtazapine but wants to hold , also offer sertraline to resume but pt states wants to hold for now ,pt wants to see if fixing sleep, depression can get better -increase trazodone to 100 mg daily and continue melatonin of to take 3 mg -Pt refused BH here today but advised pt to talk w therapist for psychiatrist referral -apt w PCP on 10/10/2024 scheduled already Assessment & Plan (05/25/2023 6:11 PM EDT): Depression w SI 2 weeks ago ,denies currently SI -f w therapist f e week at [facility] -Refuse BH offered today -refuse antidepressants for now -stopped in 2022 -states has crisis # and will f w PCP at next apt in 4 to 6 weeks Anxiety 08/26/2022 Testicular microlithiasis 01/15/2021 Diqlu-Rhqpshxul-Frgpj pattern 01/15/2021 Assessment & Plan (09/25/2022 3:39 PM EDT): Patient is followed by cardiology. Encounters * This document contains information received from the source organization and may not represent a complete record from that organization. Date Type Department Care Team Description 11/09/2024 1:00 PM EDT Office Visit [facility] [address] [place] [phone] Iris Parker ANP Bradycardia (Primary Dx); Primary insomnia; Anxiety 11/09/2024 Results Follow-Up [facility] [address] [place] [phone] Iris Parker ANP CBC auto differential 11/09/[address] [address] Iris Parker ANP 11/09/2024 Travel 11/08/2024 Telephone [facility] [address] [place] [phone] Iris Parker ANP chart prep 11/08/2024 Travel 11/05/2024 Refill [facility] [address] [place] [phone] Eneida Cali MD 10/31/2024 5:20 PM EDT Office Visit [facility] [address] [place] [phone] Derek Javier MD Insomnia, unspecified type (Primary Dx); Bradycardia 10/31/2024 Telephone [facility] [address] [place] [phone] Derek Javier MD 10/31/2024 Travel 10/31/2024 Refill [facility] [address] [place] [phone] Iris Parker ANP 10/09/2024 Telephone [facility] [address] [place] [address] Iris Parker ANP 10/09/[address] [address] Tahira Alaniz MA chart prep 08/15/2024 9:45 AM EDT Office Visit [facility] [address] [place] [phone] Eneida Cali MD Severe recurrent major depression without psychotic features (CMS/HCC) (Primary Dx); Anxiety; Insomnia due to other mental disorder 08/15/2024 Telephone [facility] [address] [place] [phone] Iris Parker ANP from Last 3 Months Immunizations Immunization Administration Dates Next Due HPV 9-Valent 01/15/2021,07/04/2015,08/16/2014 [...] Answer Date Recorded Patient Health Questionnaire-9 Score 10/31/2024 Patient Health Questionnaire-9 Score 24 10/31/2024 [...] 20 11/09/2024 1:08 PM EDT Oxygen Saturation 97% 10/31/2024 5:27 PM EDT Inhaled Oxygen Concentration - - Weight 99.8 kg (220 lb) 11/09/2024 1:08 PM EDT Height 177.8 cm (5' 10 ) 11/09/2024 1:08 PM EDT Body Mass Index 31.57 11/09/2024 1:08 PM EDT Plan of Treatment Upcoming Encounters Date Type Department Care Team (Late st Contact Info) Description 12/06/2024 4:00 PM EDT Telemedicine [facility] [address] [place], [place] [phone] Iris Parker ANP [address] [place], [place] [phone] Health Maintenance Due Date Last Done Comments Family Planning (PISQ) 2012 Pneumococcal Vaccine: Pediatrics (0 to 5 Years) and At-Risk Patients (6 to 49) Years (1 of 2 - PCV) 2016 Hepatitis B Vaccines (2 of 3 - 19+ 3-dose series) 04/14/2018 03/17/2018 COVID-19 Vaccine ( - season) 2024 09/04/2021, 08/15/2020, 07/25/2020 Influenza Vaccine (#1) 2024 , 03/26/2021, 01/18/2019, Additional history exists Alcohol/Substance Use Screening 02/23/2025 02/24/2024 SDOH Screening 04/10/2025 04/10/2024 Depression Monitoring 04/30/2025 10/31/2024, 025 Disability Screening 11/08/2025 11/08/2024 Tobacco Screening 11/09/2025 11/09/2024 Lipid Panel 08/01/2028 08/02/2023, 08/28/2019 DTaP/Tdap/Td Vaccines [...] patient's age to complete this topic Meningococcal B Vaccine Aged Out No l onger eligible based on patient's age to complete [...] Procedure Name Priority Date/Time Associated Diagnosis Comments TSH W/REFLEX TO FT4 Routine 11/09/2024 2 :17 PM EDT Bradycardia CBC WITH AUTO DIFFERENTIAL Routine 11/09/2024 2:17 PM EDT Bradycardia HEPATITIS C AB W/REFL TO HCV RNA, QN, PCR Routine 08/02/2023 12:29 PM EDT Routine screening for STI (sexually transmitted infection) HIV 1/2 ANTIGEN/ANTIBODY, FOURTH GENERATION W/RFL Routine 08/02/2023 12:29 PM EDT Routine screening for STI (sexually transmitted infection) LIPID PANEL, STANDARD Routine 08/02/2023 12:29 PM EDT Lipid screening from Last 3 Months or Most Recently Relevant to Health Maintenance Results * TSH W/Reflex to FT4 (11/09/2024 2:17 PM EDT) TSH reflex Free T4 1.10 0.32 - 4.0 uIU/mL [facility] Blood Venous blood specimen / Unknown 11/09/2024 2:17 PM EDT 11/09/2024 4:03 PM EDT us Derek Javier MD LAB BLOOD ORDERABLES Final Resul t [facility] [address] [place] [phone] * (ABNORMAL) CBC auto differential (11/09/2024 2:17 PM EDT) White Blood Count 6.2 4.8 - 10.8 X10*3/uL [facility] Red Blood Count 4.58(L) 4.60 - 5.80 X10*6/uL [facility] Hemoglobin 14.6 14.0 - 18.0 g/dl [facility] Hematocrit 43.3 42.0 - 52.0 % [facility] Mean Corpuscular Volume 94.5 80.0 - 98.0 fL [facility] Mean Corpuscular Hemoglobin 31.9 27.0 - 33.0 pg [facility] Mean Corpuscular HGB Conc 33.7 31.0 - 36.0 g/dl [facility] Red Cell Distribution Width 12.4 11.0 - 16.0 % [facility] Platelet Count 172 160 - 400 X10*3/uL [facility] Mean Platelet Volume 11.6 9.4 - 12.4 fL [facility] Neutrophils Percent Auto 54.2 45 - 73 % [facility] Imm Gran Pct Auto 0.2 0.0 - 0.4 % [facility] Lymphocytes Percent Auto 29.5 20 - 40 % [facility] Monocytes Percent Auto 12.1(H) 2 - 11 % [facility] Eosinophils Percent Auto 3.4 0 - 4 % [facility] Basophils Percent Auto 0.6 0 - 2 % [facility] NRBC Pct Auto 0.0 0.0 - 0.2 /100WBC [facility] Neutrophils Absolute Auto 3.4 2.0 - 8.3 x10*3/uL [facility] Imm Gran Abs Auto 0.01 0.00 - 0.03 X10*3/uL [facility] Lymphocytes Absolute Auto 1.8 1.2 - 4.9 X10*3/uL [facility] Monocytes Absolute Auto 0.8 0.1 - 1.2 X10*3/uL [facility] Eosinophils Absolute Auto 0.2 0.0 - 0.4 X10*3/uL [facility] Basophils Absolute Auto 0.0 0.0 - 0.2 X10*3/uL [facility] NRBC Abs Auto 0.000 0.0 - 0.012 X10*3/uL [facility] Blood Venous blood specimen / Unknown 11/09/2024 2:17 PM EDT 11/09/2024 4:03 PM EDT Derek Javier MD LAB BLOOD ORDERABLES Final Resul t Performing Organization Address City/[facility]/ZIP Co de Phone Number [facility] [address] [place] [phone] * Hepatitis C Antibody with Reflex to HCV, RNA, Quantitative, Real-Time PCR (08/02/2023 12:29 PM EDT) Hepatitis C Antibody Nonreactive Nonreactive [facility] Comment:Antibodies to HCV no t detected; does not exclude early acuteHCV infection. Blood Venous blood specimen / Unknown 08/02/2023 12:29 PM EDT 08/02/2023 12:29 PM EDT us Iris TOURE LAB BLOOD ORDERABLES Final Resul t Performing Organization Address [facility] Co de Phone Number [facility] [address] [place] [phone] * HIV-1/2 Antigen and Antibodies, Fourth Generation, with Reflexes (08/02/2023 12:29 PM EDT) HIV AB/AG Nonreactive Nonreactive [facility] Comment:HIV-1 p24 Ag and/or HIV-1/HIV-2 Ab not detected.A test result that is nonreactive does not exclude thepossibility of exposure to or infection with HIV-1 and/orHIV-2. Nonreactive results in this assay for individualswith prior exposure to HIV-1 and/or HIV-2 may be due toantigen and antibody levels that are below the limit ofdetection of this assay.The [employer] HIV Ag/Ab Combo assay result andsupplemental assay results should be interpreted inconjunction with the patient's clinical presentation,history and other laboratory results. If the results areinconsistent with clinical evidence, additional testing issuggested to confirm the result. Blood Venous blood specimen / Unknown 08/02/2023 12:29 PM EDT 08/02/2023 12:29 PM EDT Iris Parker ANP LAB BLOOD ORDERABLES Final Resul t Performing Organization Address [facility] Co de Phone Number [facility] [address] [place] [phone] * (ABNORMAL) Lipid Panel, Standard (08/02/2023 12:29 PM EDT) Triglycerides 84 <150 mg/dL [facility] Comment:Desirable Triglyceri de: less than 150 mg/dLBorderline High Triglyceride 150-199 mg/dLHigh Triglyceride: 200-499 mg/dLVery High Triglyceride: greater than or equal to 5OO mg/dL Cholesterol 145 <200 mg/dL [facility] Comment:Desirable Cholestero l: less than 200 mg/dLBorderline High Cholesterol: 200-239 mg/dLHigh Cholesterol: greater than 239 mg/dL LDL Cholesterol Calculated 97 <100 mg/dL [facility] Comment:Desirable LDL: less than 100 mg/dLNear Optimal/Above Optimal LDL: 110- 129 mg/dLBorderline High LDL: 130-159 mg/dLHigh LDL: 160-189 mg/dLVery High LDL: greater than or equal to 190 mg/dL HDL Cholesterol 32(L) >40 mg/dL [facility] Comment:Desirable HDL: great er than 40 mg/dL Note: This HDL assay may give artificially low results in patients with liver disease. Blood Venous blood specimen / Unknown 08/02/2023 12:29 PM EDT 08/02/2023 12:29 PM EDT us Iris Parker ANP LAB BLOOD ORDERABLES Final Resul t Performing Organization Address [facility]/ZIP Co de Phone Number [facility] [address] [place] [phone] from Last 3 Months or Most Recently Relevant to Health Maintenance Insurance [facility] PPO Care Teams Demand Inspector Relationship Specialty Start Date End Date Iris Parker ANP [address] [place] [phone] PCP - General Family Medicine 11/19/22
--- OUTSIDE RECORDS SUMMARY | 2024-11-09 17:54 | XMS_ITS | Encounter Summary ---
Author Organization [employer] Address [address] [place] [address] [address] [place] [address] Care Team Providers Care Neuropsychology Division Chief Name Role Phone KeithIris Primary Care Provider [phone] Reason for Visit * Reason Comments Med Refill Encounter Details Date Type Department Care Team ([facility] Contact Info) Description 11/05/2024 Refill [facility] [address] [place] [phone] Eneida Cali MD [address] [place] [address] Social History Tobacco Use Types Packs/Day Years [...] Description 12/06/2024 4:00 PM EDT Telemedicine [facility] [address] [place] [phone] Iris Parker ANP [address] [place] [phone] documented as of this encounter Visit Diagnoses Not on filedocumented in this encounter Additional Health Concerns Assessment Noted Time PHQ-9 Depression Total Score: 24 025 5:29 PM EDT documented as of this encounter Care Teams Neuropsychology Division Chief Relationship Specialty Start Date End Date Iris Parker ANP [address] [place] [phone] PCP - General Family Medicine 11/19/22 documented as of this encounter
--- OUTSIDE RECORDS SUMMARY | 2024-11-09 17:54 | XMS_ITS | Encounter Summary ---
Author Organization [employer] Address [address] [place] [address] Care Team Providers Care Damper Maker Name Role Phone Iris Parker Primary Care Provider Encounter Details Date Type Department Care Team (Latest Contact Info) Description 11/09/2024 Results Follow-Up [facility] [address] [place] [address] Iris Parker ANP [address] [place] [phone] CBC auto differential Social History Tobacco Use Types Packs/Day Years [...] Info) Description 12/06/2024 4:00 PM EDT Telemedicine [facility] [address] [place] [phone] Iris Parker ANP [address] [place] [phone] documented as of this encounter Visit Diagnoses Not on filedocumented in this encounter Additional Health Concerns Assessment Noted Time PHQ-9 Depression Total Score: 24 025 5:29 PM EDT documented as of this encounter Care Teams Damper Maker Relationship Specialty Start Date End Date Iris Parker ANP [address] [place] [phone] PCP - General Family Medicine 11/19/22 documented as of this encounter
== END 2024-11-09 14:05 | disposition home or self-care (01) ==
LOC: HO.HHCL 14:04
PROVIDERS: PCP Nurse Practitioner Primary Care; Visit Provider Family Medicine
DX: R00.1 Bradycardia, unspecified (principal)
CPT/HCPCS: 36415; 84443; 85025